=== PATIENT | male | born 1995 | race African-American/Black ===

== ENCOUNTER 2017-06-01 21:47 | Emergency (ER) | payer BC, OTHER, SELFPAY ==
--- NOTE | 2017-06-01 23:29 | ER ---
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 Transition of care: patient was not received from another setting of care. Onset of symptoms was June 01, 2017. Care prior to arrival: None. 22:18 Method Of Arrival: Ambulatory tl1 22:18 Acuity: LIZZIE 4 tl1 Historical: - Allergies: 22:22 No Known Allergies; tl1 - Home Meds: 22:22 None [Active]; tl1 - PMHx: 22:22 Kidney stones; tl1 - PSHx: 22:22 Cholecystectomy; Lithotripsy; tl1 - Immunization history:: Adult Immunizations up to date, Last tetanus immunization: unknown. - Social history:: Smoking status: Patient/guardian denies using tobacco, never smoked. Screenin:57 Abuse screen: Denies threats or abuse. Denies injuries from another. Nutritional kr2 screening: No deficits noted. Tuberculosis screening: No symptoms or risk factors identified. Fall Risk None identified. Assessment: 22:54 General: Appears in no apparent distress. comfortable, well groomed, well developed, kr2 well nourished, Behavior is calm, cooperative, appropriate for age. Pain: Complains of pain in lateral aspect of left hand Pain does not radiate. Pain currently is 5 out of 10 on a pain scale. Quality of pain is described as burning, Pain began suddenly, Is continuous, Alleviated by nothing. Aggravated by touch, movement. Neuro: Level of Consciousness is awake, alert, obeys commands, Oriented to person, place, time, situation, Appropriate for age Financial Aid Advisor are equal bilaterally Moves all extremities. Intact. Cardiovascular: Capillary refill < 3 seconds in bilateral fingers Patient's skin is warm and dry. Respiratory: Airway is patent Respiratory effort is even, unlabored, Respiratory pattern is regular, symmetrical. GI: Abdomen is flat, non-distended. : No signs and/or symptoms were reported regarding the genitourinary system. EENT: Nares are clear Oral mucosa is moist. Derm: Skin is healthy with good turgor, Skin is pink, warm \T\ dry. Musculoskeletal: Circulation, motion, and sensation intact. Range of motion: intact in all extremities. Injury Description: Laceration sustained to lateral aspect of left hand is clean, 0.5 to 2.5 cm long, was sustained 30-60 minutes ago. a small amount of bleeding noted at this time. Vital Signs: 22:20 BP 148 / 94; Pulse 96; Resp 16; Temp 98.8; Pulse Ox 97% ; Weight 90.72 kg; Height 5 ft. tl1 11 in. (180.34 cm); Pain 5/10; 22:58 BP 137 / 88; Pulse 87; Resp 15; Pulse Ox 98% on R/A; kr2 23:44 BP 132 / 95; Pulse 86; Resp 15; Pulse Ox 99% on R/A; kr2 22:20 Body Mass Index 27.89 (90.72 kg, 180.34 cm) tl1 ED Course: 21:50 Patient arrived in ED. al2 22:20 Triage completed. tl1 22:22 Arm band placed on right wrist. tl1 22:54 Shikha Pierre, MARCO is Primary Nurse. kr2 22:58 Patient has correct armband on for positive identification. Bed in low position. Call kr2 light in reach. Side rails up X 1. Pulse ox on. NIBP on. Door closed. Head of bed elevated. 23:12 Jonathan Walton PA is PHCP. jr8 23:12 Osiel Castaneda MD is Attending Physician. jr8 23:44 No provider procedures requiring assistance completed. Patient did not have IV access kr2 during this emergency room visit. 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 Exp: kr2 07/23/2019. Lot #: [id number]. } Route: IM; Site: left deltoid; 23:41 Follow up: Response: No adverse reaction kr2 Outcome: 23:29 Discharge ordered by . jr8 23:44 Discharged to home ambulatory. kr2 23:44 Condition: good 23:44 Discharge instructions given to patient, Instructed on discharge instructions, follow up and referral plans. Demonstrated understanding of instructions, follow-up care. 23:44 Patient left the ED. kr2 Signatures: Jonathan Walton PA PA jr8 Hanna Chacon, RN RN tl1 Shikha Pierre RN RN kr2 Sandie Fajardo2
--- NOTE | 2017-06-01 23:29 | EDPHYS ---
Physician Documentation [facility] Name: Zion Coronado Age: 21 yrs Sex: Male : 1995 Arrival Date: 06/01/2017 Time: 21:50 Bed 24 Private MD: ED Physician Osiel Castaneda HPI: 06/01 23:26 This 21 yrs old Black Male presents to ER via Ambulatory with complaints of Hand jr8 Injury, Hand Pain. 23:26 The patient or guardian reports a laceration. The complaints affect the left hand. jr8 Onset: The symptoms/episode began/occurred acutely, today. Modifying factors: The symptoms are alleviated by nothing, the symptoms are aggravated by nothing. Associated signs and symptoms: The patient has no apparent associated signs or symptoms. Severity of symptoms: At their worst the symptoms were mild, in the emergency department the symptoms are unchanged. The patient has not experienced similar symptoms in the past. The patient has not recently seen a physician. 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 Historical: - Allergies: 22:22 No Known Allergies; tl1 - Home Meds: 22:22 None [Active]; tl1 - PMHx: 22:22 Kidney stones; tl1 - PSHx: 22:22 Cholecystectomy; Lithotripsy; tl1 - Immunization history:: Adult Immunizations up to date, Last tetanus immunization: unknown. - Social history:: Smoking status: Patient/guardian denies using tobacco, never smoked. ROS: 23:26 Eyes: Negative for injury, pain, redness, and discharge, ENT: Negative for injury, jr8 pain, and discharge, Neck: Negative for injury, pain, and swelling, Cardiovascular: Negative for chest pain, palpitations, and edema, Respiratory: Negative for shortness of breath, cough, wheezing, and pleuritic chest pain, Abdomen/GI: Negative for abdominal pain, nausea, vomiting, diarrhea, and constipation, Back: Negative for injury and pain, MS/Extremity: Negative for injury and deformity, Neuro: Negative for headache, weakness, numbness, tingling, and seizure. 23:26 Skin: Positive for laceration(s), of the left hand. Exam: 23:26 Cardiovascular: Regular rate and rhythm with a normal S1 and S2. No gallops, murmurs, jr8 or rubs. Normal PMI, no JVD. No pulse deficits. Respiratory: Lungs have equal breath sounds bilaterally, clear to auscultation and percussion. No rales, rhonchi or wheezes noted. No increased work of breathing, no retractions or nasal flaring. MS/ Extremity: Pulses equal, no cyanosis. Neurovascular intact. Full, normal range of motion. Neuro: Awake and alert, GCS 15, oriented to person, place, time, and situation. Cranial nerves II-XII grossly intact. Motor strength 5/5 in all extremities. Sensory grossly intact. Cerebellar exam normal. Normal gait. 23:26 Skin: injury, laceration(s), the wound is approximately 2.5 cm(s), with a depth of .5 cm(s), of the dorsum of left hand, that can be described as no foreign body, irregular, with mild bleeding. Vital Signs: 22:20 BP 148 / 94; Pulse 96; Resp 16; Temp 98.8; Pulse Ox 97% ; Weight 90.72 kg; Height 5 ft. tl1 11 in. (180.34 cm); Pain 5/10; 22:58 BP 137 / 88; Pulse 87; Resp 15; Pulse Ox 98% on R/A; kr2 23:44 BP 132 / 95; Pulse 86; Resp 15; Pulse Ox 99% on R/A; kr2 22:20 Body Mass Index 27.89 (90.72 kg, 180.34 cm) tl1 Laceration: 23:26 Wound Repair of 2.5cm ( 1.0in ) subcutaneous laceration to left hand. Irregularly jr8 shaped.. Minimal bleeding noted.. Distal neuro/vascular/tendon intact. Anesthesia: Local anesthetic administered with 3 mls of 1% lidocaine. Wound prep: Moderate cleansing with betadine, Wound explored extensively. Skin closed with 4 4-0 Prolene using interrupted sutures and sterile technique. Patient tolerated well. MDM: 23:12 Patient medically screened. jr8 23:26 Data reviewed: vital signs, nurses notes, and as a result, I will discharge patient. jr8 Data interpreted: Pulse oximetry: on room air is 98 %. Interpretation: normal. Counseling: I had a detailed discussion with the patient and/or guardian regarding: the historical points, exam findings, and any diagnostic results supporting the discharge/admit diagnosis, the need for outpatient follow up, a family practitioner, to return to the emergency department if symptoms worsen or persist or if there are any questions or concerns that arise at home. 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 Exp: kr2 07/23/2019. Lot #: [id number]. } Route: IM; Site: left deltoid; 23:41 Follow up: Response: No adverse reaction kr2 Disposition: 06/02 07:06 Co-signature as Attending Physician, Osiel Castaneda MD I agree with the assessment and aissatou plan of care. Disposition: 06/01/17 23:29 Discharged to Home. Impression: Laceration without foreign body of left hand. - Condition is Stable. - Discharge Instructions: Laceration Care, Adult. - Medication Reconciliation Form, Thank You Letter, Antibiotic Education, Prescription Opioid Use, Work release form form. - Follow up: Private Physician; When: 7 - 10 days; Reason: Wound Recheck, Recheck today's complaints, Continuance of care, Staple/Suture removal, Re-evaluation by your physician. - Problem is new. - Symptoms have improved. Signatures: Osiel Castaneda MD MD cha Roszak, Josh, PA PA jr8 Hanna Chacon, RN RN tl1 Shikha Pierre RN RN kr2
[2017-06-01] MEDS ORDERED: LIDOCAINE 1% MPF 5 ML VIAL ONE (23:35)
[2017-06-01 23:50] VITALS: TEMP 98.8
[2017-06-01 23:52] VITALS: BP 132/95; O2SAT 99
[2017-06-01] MEDS ORDERED: TETANUS & DIPHTHERIA TOX,ADULT 0.5 ML VIAL ONE (23:53)
== END 2017-06-01 23:44 | disposition home or self-care (01) ==
LOC: ER 21:47
PROC: 0JQK0ZZ Repair Left Hand Subcutaneous Tissue and Fascia, Open Approach (ICD-10-PCS; principal; 2017-06-01)
DX: S61.412A Laceration without foreign body of left hand, initial encounter (principal); W26.0XXA Contact with knife, initial encounter; Y93.89 Activity, other specified; Y92.89 Other specified places as the place of occurrence of the external cause; Y99.0 Civilian activity done for income or pay; Z23 Encounter for immunization
CPT/HCPCS: 90714; 99283

== ENCOUNTER 2017-08-04 12:15 | Emergency (ER) | payer OTHER, SELFPAY ==
[2017-08-04] MEDS ORDERED: NA CHLORIDE 0.9% 1,000 ML ONE (12:24)
[2017-08-04 12:52] LABS: Arterial Blood Carboxyhemoglob 0.9 % (0-1.5); Blood Gas Oxyhemoglobin 96.6 % (94-97); Blood O2 Saturation 98.3 % (92-98.5)
[2017-08-04 13:02] LABS: Absolute Lymphocytes (CBC) 2.4 K/uL (0.7-4.9); Absolute Monocytes 1.1 K/uL (0.1-1.3); Basophils % 0.3 % (0-1.3); Eosinophils % 0.1 % (0-4.4); Hematocrit 42.3 % (39.6-49.0); Lymphocytes % 17.8 % (15.3-44.8); MCV 88.4 fL (80-100); MPV 9.4 fL (7.6-11.3); Monocytes % 8.4 % (3.3-12.3); RBC Red Blood Cell Count 4.78 M/uL (4.33-5.43)
[2017-08-04 13:03] LABS: BUN Blood Urea Nitrogen 16 mg/dL (6-20); Bicarbonate 21 mEq/L (21-31); Glucose Level 84 mg/dL (65-120); Potassium 3.2 mEq/L (3.6-5.0); Sodium Level 135 mEq/L (135-145)
--- NOTE | 2017-08-04 13:33 | RAD REPORT ---
EXAM DESCRIPTION: RAD - Chest Single View - 08/04/2017 1:00 pm CLINICAL HISTORY: Facial numbness, shortness of breath COMPARISON: None. TECHNIQUE: AP portable chest image was obtained 1253 hours . FINDINGS: Lungs are clear. Heart and vasculature are normal. No measurable pleural effusion and no p neumothorax. No gross bony abnormality seen. No acute aortic findings suspected. IMPRESSION: No acute cardiopulmonary process.
[2017-08-04] MEDS ORDERED: POTASSIUM CL SA 10 MEQ TAB PO ONE (13:43)
--- NOTE | 2017-08-04 13:46 | EKG ---
Test Date: 2017-08-04 Test Time: 12:36:53 Uc Architect: MARYLOU MEASUREMENT RESULTS: Intervals: Rate: 96 DC: 132 QRSD: 96 QT: 350 QTc: 442 [place]: P: 50 DC: 132 QRS: 42 T: 50 INTERPRETIVE STATEMENTS: Normal sinus rhythm Normal ECG No previous ECG available for comparison Electronically Signed On 08-04-17 13:45:25 CDT by Marquis Moreno
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
[2017-08-04 14:43] VITALS: TEMP 97.9
[2017-08-04 14:45] VITALS: O2SAT 100
[2017-08-04 14:46] VITALS: BP 114/78
== END 2017-08-04 14:35 | disposition home or self-care (01) ==
LOC: ER 12:15
DX: E86.0 Dehydration (principal); T67.5XXA Heat exhaustion, unspecified, initial encounter; Y99.0 Civilian activity done for income or pay; Y93.89 Activity, other specified; Y92.89 Other specified places as the place of occurrence of the external cause
CPT/HCPCS: 36415; 71045; 80048; 82805; 85025; 93005; 96360; 99284; J7030

== ENCOUNTER 2019-02-13 23:47 | Emergency (ER) | payer BC, OTHER ==
[2019-02-14 00:49] LABS: Absolute Lymphocytes (CBC) 2.6 K/uL (0.7-4.9); Basophils % 0.3 % (0-1.3); Hematocrit 44.3 % (39.6-49.0); Lymphocytes % 31.5 % (15.3-44.8); MPV 8.8 fL (7.6-11.3); RBC Red Blood Cell Count 4.96 M/uL (4.33-5.43)
[2019-02-14] MEDS ORDERED: ONDANSETRON 4 MG/2 ML VIAL ONE (00:53)
[2019-02-14] MEDS ORDERED: NA CHLORIDE 0.9% 1,000 ML ONE (00:53)
[2019-02-14 01:04] LABS: ALT/SGPT 54 U/L (12-78); AST/SGOT 27 U/L (15-37); Albumin 3.8 g/dL (3.4-5.0); Alkaline Phosphatase 68 U/L (45-117); BUN Blood Urea Nitrogen 12 mg/dL (7-18); Bicarbonate 29 mmol/L (21-32); Bilirubin Direct 0.2 mg/dL (0-0.2); Bilirubin Total 0.9 mg/dL (0.2-1.0); Glucose Level 125 mg/dL (74-106); Lipase 108 U/L (73-393); Potassium 3.8 mmol/L (3.5-5.1); Protein, Total 7.5 g/dL (6.4-8.2); Sodium Level 142 mmol/L (136-145)
[2019-02-14 01:34] LABS: Urine Blood NEGATIVE (NEG); Urine Glucose NEGATIVE (NEG); Urine Protein 1+ (NEG)
--- NOTE | 2019-02-14 04:30 | ER ---
Nurse's Notes [facility] Name: Zion Coronado Age: 23 yrs Sex: Male : 1995 Arrival Date: 02/13/2019 Time: 23:50 Bed 13 Private MD: Diagnosis: Abdominal tenderness Presentation: 02/14 00:04 Presenting complaint: Patient states: he started having abdominal pain with vomiting bb for several hours and he has had diarrhea "for a while" abdominal pain is constant and currently is 6/10. Transition of care: patient was not received from another setting of care. Onset of symptoms was February 14, 2019. Risk Assessment: Do you want to hurt yourself or someone else? Patient reports no desire to harm self or others. Initial Sepsis Screen: Does the patient meet any 2 criteria? No. Patient's initial sepsis screen is negative. Does the patient have a suspected source of infection? No. Patient's initial sepsis screen is negative. Care prior to arrival: None. 00:04 Method Of Arrival: Ambulatory bb 00:04 Acuity: LIZZIE 3 bb Historical: - Allergies: 00:05 No Known Allergies; bb - Home Meds: 00:05 None [Active]; bb - PMHx: 00:05 Kidney stones; bb - PSHx: 00:05 Cholecystectomy; bb - Immunization history:: Adult Immunizations up to date. - Social history:: Smoking status: Patient/guardian denies using tobacco. - Ebola Screening: : No symptoms or risks identified at this time. Screenin:15 Abuse screen: Denies threats or abuse. Nutritional screening: No deficits noted. jb4 Tuberculosis screening: No symptoms or risk factors identified. Fall Risk None identified. Assessment: 00:15 General: Appears in no apparent distress. uncomfortable, Behavior is calm, cooperative. jb4 Pain: Complains of pain in abdomen. Neuro: Level of Consciousness is awake, alert, obeys commands, Oriented to person, place, time, situation. Cardiovascular: Patient's skin is warm and dry. Respiratory: Airway is patent Respiratory effort is even, unlabored, Respiratory pattern is regular, symmetrical. GI: Abdomen is round non-distended, Bowel sounds present X 4 quads. : No signs and/or symptoms were reported regarding the genitourinary system. EENT: No signs and/or symptoms were reported regarding the EENT system. Derm: Skin is intact, Skin is pink, warm \\T\\ dry. Musculoskeletal: Circulation, motion, and sensation intact. Range of motion: intact in all extremities. 01:30 Reassessment: Patient appears in no apparent distress at this time. Patient and/or jb4 family updated on plan of care and expected duration. Pain level reassessed. Patient is alert, oriented x 3, equal unlabored respirations, skin warm/dry/pink. 02:20 Reassessment: Patient appears in no apparent distress at this time. Patient and/or jb4 family updated on plan of care and expected duration. Pain level reassessed. Patient is alert, oriented x 3, equal unlabored respirations, skin warm/dry/pink. PT to Ct Patient states feeling better. 03:30 Reassessment: Patient appears in no apparent distress at this time. Patient and/or jb4 family updated on plan of care and expected duration. Pain level reassessed. Patient is alert, oriented x 3, equal unlabored respirations, skin warm/dry/pink. 04:25 Reassessment: Patient appears in no apparent distress at this time. Patient and/or jb4 family updated on plan of care and expected duration. Pain level reassessed. Patient is alert, oriented x 3, equal unlabored respirations, skin warm/dry/pink. 05:00 Reassessment: Patient appears in no apparent distress at this time. Patient and/or jb4 family updated on plan of care and expected duration. Pain level reassessed. Patient is alert, oriented x 3, equal unlabored respirations, skin warm/dry/pink. Vital Signs: 00:05 BP 139 / 82; Pulse 78; Resp 16 S; Temp 98.1(O); Pulse Ox 100% on R/A; Weight 103.42 kg bb (R); Height 5 ft. 10 in. (177.80 cm) (R); Pain 6/10; 02:05 BP 127 / 85; Pulse 82; Resp 16; Pulse Ox 100% on R/A; jb4 03:30 BP 121 / 75; Pulse 72; Resp 16; Pulse Ox 96% on R/A; jb4 04:15 BP 120 / 71; Pulse 69; Resp 16; Pulse Ox 98% on R/A; jb4 04:45 BP 120 / 71; Pulse 69; Resp 16; Pulse Ox 98% on R/A; jb4 00:05 Body Mass Index 32.71 (103.42 kg, 177.80 cm) ED Course: 12 23:50 Patient arrived in ED. cl3 12 00:05 Triage completed. bb 00:05 Arm band placed on Patient placed in waiting room, Patient notified of wait time. bb 00:09 Fernando Box MD is Attending Physician. tw4 00:15 Patient has correct armband on for positive identification. Bed in low position. Call jb4 light in reach. Side rails up X 1. Pulse ox on. NIBP on. 00:29 Inserted saline lock: 20 gauge in left antecubital area, using aseptic technique. Blood mt collected. 00:40 Luis Velazquez, RN is Primary Nurse. jb4 02:44 CT Abd/Pelvis - IV Contrast Only In Process Unspecified. EDMS 05:01 No provider procedures requiring assistance completed. IV discontinued, intact, jb4 bleeding controlled, No redness/swelling at site. Pressure dressing applied. Administered Medications: 01:20 Drug: NS 0.9% 1000 ml Route: IV; Rate: 1 bolus; Site: left antecubital; jb4 02:00 Follow up: Response: No adverse reaction; IV Status: Completed infusion; IV Intake: jb4 1000ml 01:20 Drug: Zofran 4 mg Route: IVP; Site: left antecubital; jb4 01:50 Follow up: Response: No adverse reaction; Nausea is decreased jb4 04:58 Drug: TORadol 30 mg Route: IVP; Site: left antecubital; jb4 04:59 Follow up: Response: Medication administered at discharge. jb4 Intake: 02:00 IV: 1000ml; Total: 1000ml. jb4 Outcome: 04:29 Discharge ordered by . tw4 05:01 Discharged to home ambulatory. jb4 05:01 Condition: stable 05:01 Discharge instructions given to patient, Instructed on discharge instructions, follow up and referral plans. medication usage, Demonstrated understanding of instructions, follow-up care, medications, Prescriptions given X 1. 05:02 Patient left the ED. mw2 Signatures: Dispatcher [facility] Olinda Soares RN RN bb Bryson, James, RN RN jb4 She Mike mt, Terrence, MD MD tw4 Autumn Norma mw2 Alana Gomez cl3
--- NOTE | 2019-02-14 04:30 | EDPHYS ---
Physician Documentation [facility] Name: Zion Coronado Age: 23 yrs Sex: Male : 1995 Arrival Date: 02/13/2019 Time: 23:50 Bed 13 Private MD: ED Physician Fernando Box HPI: 02/14 00:41 This 23 yrs old Black Male presents to ER via Ambulatory with complaints of Abdominal tw4 Pain, Nausea/Vomiting/Diarrhea. 00:41 The patient presents to the emergency department with nausea. Onset: The tw4 symptoms/episode began/occurred today. Possible causes: unknown. The symptoms are aggravated by nothing. The symptoms are alleviated by nothing. The patient has not experienced similar symptoms in the past. Historical: - Allergies: 00:05 No Known Allergies; bb - Home Meds: 00:05 None [Active]; bb - PMHx: 00:05 Kidney stones; bb - PSHx: 00:05 Cholecystectomy; bb - Immunization history:: Adult Immunizations up to date. - Social history:: Smoking status: Patient/guardian denies using tobacco. - Ebola Screening: : No symptoms or risks identified at this time. ROS: 02:45 Constitutional: Negative for fever, chills, and weight loss, Eyes: Negative for injury, tw4 pain, redness, and discharge, Cardiovascular: Negative for chest pain, palpitations, and edema, Respiratory: Negative for shortness of breath, cough, wheezing, and pleuritic chest pain, Back: Negative for injury and pain, MS/Extremity: Negative for injury and deformity, Skin: Negative for injury, rash, and discoloration, Neuro: Negative for headache, weakness, numbness, tingling, and seizure. 02:45 Abdomen/GI: Positive for abdominal pain, nausea and vomiting, nausea, vomiting, and diarrhea, nausea, vomiting, Negative for diarrhea, constipation, abdominal cramps, abdominal distension, anorexia, dysphagia, hematemesis, black/tarry stool, rectal pain, rectal bleeding. Exam: 02:45 Constitutional: This is a well developed, well nourished patient who is awake, alert, tw4 and in no acute distress. Head/Face: Normocephalic, atraumatic. Chest/axilla: Normal chest wall appearance and motion. Nontender with no deformity. No lesions are appreciated. Cardiovascular: Regular rate and rhythm with a normal S1 and S2. No gallops, murmurs, or rubs. Normal PMI, no JVD. No pulse deficits. Respiratory: Lungs have equal breath sounds bilaterally, clear to auscultation and percussion. No rales, rhonchi or wheezes noted. No increased work of breathing, no retractions or nasal flaring. 02:45 Back: No spinal tenderness. No costovertebral tenderness. Full range of motion. MS/ Extremity: Pulses equal, no cyanosis. Neurovascular intact. Full, normal range of motion. Neuro: Awake and alert, GCS 15, oriented to person, place, time, and situation. Cranial nerves II-XII grossly intact. Motor strength 5/5 in all extremities. Sensory grossly intact. Cerebellar exam normal. Normal gait. Psych: Awake, alert, with orientation to person, place and time. Behavior, mood, and affect are within normal limits. 02:45 Abdomen/GI: Inspection: abdomen appears normal, Bowel sounds: diminished, Palpation: moderate abdominal tenderness, in the right lower quadrant. Vital Signs: 00:05 BP 139 / 82; Pulse 78; Resp 16 S; Temp 98.1(O); Pulse Ox 100% on R/A; Weight 103.42 kg bb (R); Height 5 ft. 10 in. (177.80 cm) (R); Pain 6/10; 02:05 BP 127 / 85; Pulse 82; Resp 16; Pulse Ox 100% on R/A; jb4 03:30 BP 121 / 75; Pulse 72; Resp 16; Pulse Ox 96% on R/A; jb4 04:15 BP 120 / 71; Pulse 69; Resp 16; Pulse Ox 98% on R/A; jb4 04:45 BP 120 / 71; Pulse 69; Resp 16; Pulse Ox 98% on R/A; jb4 00:05 Body Mass Index 32.71 (103.42 kg, 177.80 cm) bb MDM: 00:09 Patient medically screened. tw4 02:45 Differential diagnosis: Nonspecific abd pain, gastritis, cholecystitis. Data reviewed: tw4 vital signs, nurses notes. Data interpreted: Pulse oximetry: Interpretation: normal. Test interpretation: by ED physician or midlevel provider: ECG. Counseling: I had a detailed discussion with the patient and/or guardian regarding: the historical points, exam findings, and any diagnostic results supporting the discharge/admit diagnosis, lab results, radiology results. 02:52 Data reviewed: lab test result(s), CBC, white blood cell count, hemoglobin, hematocrit, tw4 platelets, electrolytes, sodium, potassium, chloride, serum bicarbonate, BUN, creatinine, serum glucose, hepatic panel. 04:23 Special discussion: Based on the patient's Hx, exam, and Dx evaluation, there is no tw4 indication for emergent surgery or inpatient Tx. It is understood by the patient/guardian that if the Sx's persist or worsen they need to return immediately for re-evaluation. I discussed with the patient/guardian in detail that at this point there is no indication for admission to the hospital. It is understood, however, that if the symptoms persist or worsen the patient needs to return immediately for re-evaluation. 02/14 00:10 Order name: Basic Metabolic Panel; Complete Time: 01:46 02/14 01:47 Interpretation: Normal except: CL 109; GLUC 125. 02/14 00:10 Order name: CBC with Diff; Complete Time: :46 02/14 00:10 Order name: Creatinine for Radiology; Complete Time: :46 02/14 00:10 Order name: Hepatic Function; Complete Time: :46 02/14 00:10 Order name: Lipase; Complete Time: :46 02/14 01:16 Order name: Urine Dipstick--Ancillary (enter results); Complete Time: 01:46 [facility] 02/14 00:10 Order name: IV Saline Lock; Complete Time: 00:29 02/14 00:10 Order name: Labs collected and sent; Complete Time: 00:29 02/14 00:32 Order name: Urine Dipstick-Ancillary (obtain specimen); Complete Time: 01:24 02/14 01:42 Order name: CT Abd/Pelvis - IV Contrast Only Administered Medications: 01:20 Drug: NS 0.9% 1000 ml Route: IV; Rate: 1 bolus; Site: left antecubital; jb4 02:00 Follow up: Response: No adverse reaction; IV Status: Completed infusion; IV Intake: jb4 1000ml 01:20 Drug: Zofran 4 mg Route: IVP; Site: left antecubital; jb4 01:50 Follow up: Response: No adverse reaction; Nausea is decreased jb4 04:58 Drug: TORadol 30 mg Route: IVP; Site: left antecubital; jb4 04:59 Follow up: Response: Medication administered at discharge. jb4 Disposition: 02/14/19 04:29 Discharged to Home. Impression: Abdominal tenderness. - Condition is Stable. - Discharge Instructions: Abdominal Pain, Adult. - Prescriptions for Bentyl 20 mg Oral Tablet - take 1 tablet by ORAL route every 6 hours As needed; 20 tablet. - Work release form, Medication Reconciliation Form, Thank You Letter, Antibiotic Education, Prescription Opioid Use form. - Follow up: Private Physician; When: Upon discharge from the Emergency Department; Reason: Recheck today's complaints, Continuance of care. - Problem is new. - Symptoms have improved. Signatures: Dispatcher [employer] EDMS Olinda Soares RN RN Luis Diaz RN RN jb4 Fernando Box MD MD tw4 Norma Leyva mw2 Corrections: (The following items were deleted from the chart) 02:53 02:45 Data reviewed: lab test result(s), cardiac enzymes, troponin i, CBC, white blood tw4 cell count, hemoglobin, hematocrit, platelets, electrolytes, sodium, potassium, chloride, serum bicarbonate, BUN, creatinine, serum glucose, hepatic panel, [facility] 05:02 04:29 02/14/2019 04:29 Discharged to Home. Impression: Abdominal tenderness. Condition mw2 is Stable. Forms are Medication Reconciliation Form, Thank You Letter, Antibiotic Education, Prescription Opioid Use. Follow up: Private Physician; When: Upon discharge from the Emergency Department; Reason: Recheck today's complaints, Continuance of care. Problem is new. Symptoms have improved. tw4
[2019-02-14] MEDS ORDERED: KETOROLAC 30 MG/ML INJ ONE (04:53)
[2019-02-14 06:44] VITALS: TEMP 98.1
[2019-02-14 06:48] VITALS: BP 120/71; O2SAT 98
--- NOTE | 2019-02-14 10:59 | RAD REPORT ---
EXAM DESCRIPTION: CT Abdomen and Pelvis With Intravenous Contrast CLINICAL HISTORY: The patient is 23 years old and is Male; ABD PAIN TECHNIQUE: Axial computed tomography images of the abdomen and pelvis with intravenous contrast. S agittal and coronal reformatted images were created and reviewed. This CT exam was performed using one or more of the following dose reduction techniques: automated exposure control, adjustment of t he mA and/or kV according to patient size, and/or use of iterative reconstruction technique. COMPARISON: No relevant prior studies available. FINDINGS: LUNG BASES: Unremarkable. No mass. No consolidation. ABDOMEN: LIVER: The liver is mildly fatty. GALLBLADDER AND BILE DUCTS: Surgical clips are present in the right upper quadrant, consistent w ith previous cholecystectomy. PANCREAS: No ductal dilation. No mass. SPLEEN: Unremarkable. ADRENALS: Unremarkable. No mass. KIDNEYS AND URETERS: Unremarkable. The kidneys enhance symmetrically. No obstructing renal or ur eteral calculus is seen. No hydronephrosis or hydroureter. No perinephric fluid or stranding. STOMACH AND BOWEL: The stomach is distended with food contents. The small bowel is normal in afia iber. A moderate amount stool is present throughout colon. There is no mucosal thickening or evidence of bowel obstruction. PELVIS: APPENDIX: The appendix is normal in caliber without surrounding inflammation. BLADDER: Unremarkable. No mass. REPRODUCTIVE: Unremarkable as visualized. ABDOMEN and PELVIS: INTRAPERITONEAL SPACE: Unremarkable. No free air. No significant fluid collection. BONES/JOINTS: No acute fracture. SOFT TISSUES: The soft tissues are normal. VASCULATURE: Unremarkable. No abdominal aortic aneurysm. LYMPH NODES: Unremarkable. No enlarged lymph nodes. IMPRESSION: No acute findings on this contrasted CT of the abdomen and pelvis to explain the patient 's symptoms. Electronically signed by: Michelle Gaxiola MD 02/14/2019 3:25 AM DRY CLEANING MANAGER Due to temporary technical issues with the PACS/Fluency reporting system, reports are being signed by the in house radiologist as a courtesy to ensure prompt reporting. The interpreting radiologist is f ully responsible for the content of the report.
== END 2019-02-14 05:02 | disposition home or self-care (01) ==
LOC: ER 23:47
DX: R10.819 Abdominal tenderness, unspecified site (principal)
CPT/HCPCS: 96361; 85025; 80048; 36415; 80076; 81003; 83690; 74177; 96375; 96374; 99284; Q9967; J7030; J2405

== ENCOUNTER 2020-08-08 23:17 | Emergency (ER) | payer BC, SELFPAY ==
--- OUTSIDE RECORDS SUMMARY | 2020-08-08 23:19 | XMS REPORT | Continuity of Care Document ---
:1995 Author Organization [facility] t Address [address] [place] [address] Care Team Providers Name Role Phone Giles URIBE S Attending Clinician Doctor Unassigned, Name Attending Clinician Unavailable Lab, Fam Pob I Attending Clinician Unavailable Problems This patient has no known problems. Allergies, Adverse Reactions, Alerts This patient has no known allergies or adverse reactions. Medications This patient has no known medications. Procedures This patient has no known procedures. Encounters Start End Encounter Admission Attending Care Care Encounter Source Date/Time Date/Time Type Type Clinicians Facility Department ID 2020-05-29 2020-05-29 Emergency [place] [facility] [id number] 05:14:00 06:47:00 Dulce Calvo [id number] [place] [id number] [place] [id number] 2020-05-29 2020-05-29 Orders Doctor MAICOL [id number] 00:00:00 00:00:00 Only Unassigned, LISA [id number] [place] [id number] 2019-10-28 2019-10-28 Laboratory Lab, [facility] [id number] 14:41:41 15:01:41 Only Fam P[facility] [id number] [place] [id number] [facility] [id number] [address] [address] Results This patient has no known results.
--- NOTE | 2020-08-09 00:29 | ER ---
Nurse's Notes [facility] [place], [place] Name: Zion Coronado Age: 24 yrs Sex: Male : 1995 Arrival Date: 08/08/2020 Time: 23:24 Bed Waiting Private MD: Diagnosis: Presentation: 08/08 23:42 Chief complaint: Patient states: he suddenly started having right groin pain tonight at bb approx 2200 and now feels a lesly-sized bump in his groin denies vomiting or diarrhea. Coronavirus screen: At this time, the client does not indicate any symptoms associated with coronavirus-19. Ebola Screen: No symptoms or risks identified at this time. Initial Sepsis Screen: Does the patient meet any 2 criteria? No. Patient's initial sepsis screen is negative. Does the patient have a suspected source of infection? No. Patient's initial sepsis screen is negative. Risk Assessment: Do you want to hurt yourself or someone else? Patient reports no desire to harm self or others. Onset of symptoms was August 08, 2020. 23:42 Method Of Arrival: Ambulatory 23:42 Acuity: LIZZIE 3 Triage Assessment: 23:44 General: Appears in no apparent distress. Behavior is calm, cooperative. Pain: bb Complains of pain in right groin. Neuro: Level of Consciousness is awake, alert, obeys commands, Oriented to person, place, time, situation. Cardiovascular: Capillary refill < 3 seconds Patient's skin is warm and dry. Respiratory: Respiratory effort is even, unlabored, Respiratory pattern is regular. GI: Abdomen is non-distended. Derm: Skin is pink, warm \T\ dry. Musculoskeletal: Circulation, motion, and sensation intact. Historical: - Allergies: 23:44 No Known Allergies; bb - Home Meds: 23:44 None [Active]; bb - PMHx: 23:44 Kidney stones; bb - PSHx: 23:44 Cholecystectomy; Tonsillectomy; addenoids; bb - Immunization history:: Adult Immunizations up to date. - Social history:: Smoking status: Patient denies any tobacco usage or history of. Patient uses alcohol, occasionally. Vital Signs: 23:42 BP 130 / 87; Pulse 94; Resp 16 S; Temp 98.5(O); Pulse Ox 99% on R/A; Weight 93.89 kg bb (R); Height 5 ft. 11 in. (180.34 cm) (R); Pain 5/10; 23:42 Body Mass Index 28.87 (93.89 kg, 180.34 cm) bb ED Course: 23:24 Patient arrived in ED. es 23:44 Triage completed. bb 23:44 Arm band placed on Patient placed in waiting room, Patient notified of wait time. bb 08/09 00:12 Jhonny Rodriguez, RN is Primary Nurse. rr5 00:13 Patient's name was called from [employer]. No response. bb 00:29 Patient's name was called from [employer]. No response. Unable to locate patient. Will bb disposition as left without being seen by a provider. Administered Medications: No medications were administered Outcome: 00:29 Patient left the ED. bb Signatures: Shaylee Gonzalez Brenda, RN RN bb Jhonny Rodriguez, RN RN rr5
[2020-08-09 00:53] VITALS: BP 130/87; TEMP 98.5; O2SAT 99
== END 2020-08-09 00:29 | disposition left against medical advice (07) ==
LOC: ER 23:17
DX: Z53.21 Procedure and treatment not carried out due to patient leaving prior to being seen by health care provider (principal)
CPT/HCPCS: 99281

== ENCOUNTER 2021-01-27 13:37 | Emergency (ER) | payer BC, OTHER ==
--- OUTSIDE RECORDS SUMMARY | 2021-01-27 13:39 | XMS REPORT | Continuity of Care Document ---
:1995 Author Organization [facility] t Address [address] [place] [address] Care Team Providers Name Role Phone Collins, E Primary Care Physician Giles URIBE S Attending Clinician Doctor Unassigned, Name Attending Clinician Unavailable Sharon JOHNSON Attending Clinician Unavailable Lab, Fam Pob I Attending Clinician Unavailable Anene TAKE OFF WORKER Attending Clinician ANENE Attending Clinician Unavailable Edgar GARDNER Attending Clinician Unavailable Payers Payer Name Policy Type Policy Number Effective Date Expiration Date S [facility] [id number] 2019 00:00:00 Problems Condition Condition Condition Status Onset Resolution Last Treating Co mments Source Name Details Category Date Date Treatment Clinician Date No known No known Disease Unive rs active active ity of problems problems [facility] Allergies, Adverse Reactions, Alerts Allergy Allergy Status Severity Reaction(s) Onset Inactive Treating Comm ents Source Name Type Date Date Clinician NO KNOWN Drug Active Univers ALLERGIE Class ity of S [facility] Social History Social Habit Start Date Stop Date Quantity Comments Source Exposure to Not sure [facility] SARS-CoV-2 (event) Medica l Branch Sex Assigned At [birth year] [facility] 00:00:00 00:00:00 Medical Branch Smoking Status Start Date Stop Date Source Unknown if ever smoked [facility] Medications Ordered Filled Start Stop Current Ordering Indication Dosage Frequency Signature Comments Components Source Medication Medication Date Date Medication? Clinician (SIG) Name Name sulfamethox 2020-03- No 1{tbl} 1 tablet, [facility] azole-trime 12-31 Oral, ity of thoprim 08:45: 07:50 ONCE, 1 [place] (BACTRIM 00 :00 dose, On Medical DS) 800-160 Tue Branch mg per 12/31/20 tablet 1 at 0345, tablet SUSAN
Re ason for Anti-Infec tive: Documented Infection< br>Documen michelle Infection Site: Skin / Soft Tissue
Duration of Therapy: Other (see Comments) doxycycline 2020-03 No 100mg 100 mg, U nivers hyclate 12-31 Oral, ity of (Vibramycin 08:45: 07[place]50 [place] 1 [place] capsule 00 :00 dose, On Medica l 100 mg Tue Branch 12/31/20 at 0345, SUSAN
Re ason for Anti-Infec tive: Documented Infection< br>Documen michelle Infection Site: Skin / Soft Tissue
Duration of Therapy: Other (see Comments) benzonatate 200mg 200 mg, U nivers (TESSALON 3-17 03-17 Oral, ity of PERLES) 11:45: 10:44 ONCE, 1 [place] capsule 200 00 :00 dose, Wed Med ical mg 05/29/20 at Branch 0645, Routine benzonatate Yes [id number] 200mg Take 1 Univers 200 mg 3-17 capsule by ity of capsule 00:00: mouth 3 [place] 00 (three) Medical times Branch daily as needed for Cough. ibuprofen Yes [id number] 800mg Take 1 U nivers 800 mg 3-17 tablet by ity of tablet 00:00: mouth [place] 00 every 8 Medical (eight) Branch hours as needed for Pain (scale 4-6). benzonatate 2020- Yes [id number] 200mg Take 1 Univers 200 mg 3-17 capsule by ity of capsule 00:00: mouth 3 [place] 00 (three) Medical times Branch daily as needed for Cough. ibuprofen Yes [id number] 800mg Take 1 U nivers 800 mg 3-17 tablet by ity of tablet 00:00: mouth [place] 00 every 8 Medical (eight) Branch hours as needed for Pain (scale 4-6). hydrocodone 2010-03 Yes 1{capsu Take 1 Cap Univers -acetaminop 1-07 le} by mouth ity of hen 00:00: every 6 [place] (STAGESIC) 00 (six) Medical 5-500 mg hours as Branch per capsule needed for Pain. hydrocodone 2010-03 Yes 1{capsu Take 1 Cap Univers -acetaminop 1-07 le} by mouth ity of hen 00:00: every 6 [place] (STAGESIC) 00 (six) Medical 5-500 mg hours as Branch per capsule needed for Pain. hydrocodone 2010-03 Yes 1{capsu Take 1 Cap Univers -acetaminop 1-07 le} by mouth ity of hen 00:00: every 6 [place] (STAGESIC) 00 (six) Medical 5-500 mg hours as Branch per capsule needed for Pain. hydrocodone 2010-03 Yes 1{capsu Take 1 Cap Univers -acetaminop 1-07 le} by mouth ity of hen 00:00: every 6 [place] (STAGESIC) 00 (six) Medical 5-500 mg hours as Branch per capsule needed for Pain. hydrocodone 2010-03 Yes 1{capsu Take 1 Cap Univers -acetaminop 1-07 le} by mouth ity of hen 00:00: every 6 [place] (STAGESIC) 00 (six) Medical 5-500 mg hours as Branch per capsule needed for Pain. Vital Signs Vital Name Observation Time Observation Value Comments Source Systolic blood 2020-12-31 07:32:00 140 mm[facility]Hg[facility] Diastolic [facility] 2020-12-31 07:32:00 87 mm[Hg] [facility] Heart rate 2020-12-31 07:32:00 91 /min [facility] Respiratory rate 2020-12-31 07:32:00 19 /min [facility] Oxygen saturation in 2020-12-31 07:32:00 100 /min [facility] Arterial blood by [facility] Pulse oximetry Branch Body temperature 2020-12-31 06:54:00 37 [facility] Body height 2020-12-31 06:54:00 177.8 cm [facility] Body weight 2020-12-31 06:54:00 97.523 kg [facility] [place] [facility] BMI 2020-12-31 06:54:00 30.85 kg/m2 [facility] [place] [facility] Systolic blood 2020-05-29 10:13:00 132 mm[Hg] Univer sity of pressure [place] [facility] Diastolic blood 2020-05-29 10:13:00 81 mm[Hg] Unive rsity of pressure [place] [facility] Heart rate 2020-05-29 10:13:00 89 /min [facility] [place] [facility] Body temperature 2020-05-29 10:13:00 36.89 Janelle [facility] [place] [facility] Respiratory rate 2020-05-29 10:13:00 16 /min [facility] [place] [facility] Body height 2020-05-29 10:13:00 177.8 cm [facility] [place] [facility] Body weight 2020-05-29 10:13:00 93.441 kg [facility] [place] [facility] BMI 2020-05-29 10:13:00 29.56 kg/m2 [facility] [place] [facility] Oxygen saturation in 2020-05-29 10:13:00 100 /min [facility] of Arterial blood by [place] [facility] Pulse oximetry Branch Systolic blood 2020-05-29 10:13:00 132 mm[Hg] Univer sity of pressure [place] [facility] Diastolic blood 2020-05-29 10:13:00 81 mm[Hg] Unive rsity of pressure [place] [facility] Heart rate 2020-05-29 10:13:00 89 /min [facility] [place] [facility] Body temperature 2020-05-29 10:13:00 36.89 Janelle [facility] [place] [facility] Respiratory rate 2020-05-29 10:13:00 16 /min [facility] [place] [facility] Body height 2020-05-29 10:13:00 177.8 cm [facility] [place] [facility] Body weight 2020-05-29 10:13:00 93.441 kg [facility] [place] [facility] BMI 2020-05-29 10:13:00 29.56 kg/m2 [facility] [place] [facility] Oxygen saturation in 2020-05-29 10:13:00 100 /min University of Arterial blood by [facility] Pulse oximetry Branch Procedures Procedure Date / Time Performed Performing Clinician Sour e CONSENT/REFUSAL FOR 2020-12-31 06:43:35 Doctor Unassigned, No [facility] [place] DIAGNOSIS AND Name Medical Branch TREATMENT XR CHEST 1 VW 2020-05-29 10:55:05 Dulce Skaggs [facility] Medical [place] RAPID STREP SCREEN 2020-05-29 10:44:00 Dulce Skaggs [facility] FOR GROUP A Medical Branch COVID-19 (ID NOW 2020-05-29 10:44:00 Dulce Skaggs [facility] RAPID TESTING) Medical Branch NOTICE OF PRIVACY 2020-05-29 10:02:10 Doctor Unassigned, No [facility] [place] PRACTICES Name Medical Branch CONSENT/REFUSAL FOR 2020-05-29 10:01:55 Doctor Unassigned, No [facility] [place] DIAGNOSIS AND Name Medical Branch TREATMENT Encounters Start End Encounter Admission Attending Care Care Encounter Source Date/Time Date/Time Type Type Clinicians Facility Department ID 2021-01-14 Emergency [facility] [id number] Univers 07:46:37 ity of [facility] 2021-01-12 Emergency [facility] [id number] Univers 06:31:25 ity of [facility] 2020-12-31 2020-12-31 Emergency [facility] [id number] Univers 01:50:00 03:18:00 Dulce [place] [id number] ity of [place] [id number] [place] [address] [id number] [facility] 084 Branch 2020-05-29 2020-05-29 Emergency [facility] [id number] 05:14:00 06:47:00 Dulce [place] [id number] [place] [id number] [place] [address] [id number] 2020-05-29 2020-05-29 Emergency [facility] [id number] Univers 05:14:00 06:47:00 Redanjelica [place] [id number] ity of [place] [id number] [place] [facility] [id number] [facility] 084 [place] 2020-05-29 2020-05-29 Orders Doctor MAICOL [id number] 00:00:00 00:00:00 Only Unassigned, LISA [id number] [place] [facility] [id number] [id number] 2020-05-29 2020-05-29 Orders Doctor MAICOL [id number] Univers 00:00:00 00:00:00 Only Unassigned, LISA [id number] ity of [place] [facility] [id number] Maurice as [id number] [address] 2020-04-23 2020-04-23 Outpatient [facility] [id number] Univers 12:00:00 12:00:[id number] [facility] 2020-04-23 2020-04-23 [facility] [id number] Univers 12:00:00 12:00:00 ODELL [facility] 2019-10-28 2019-10-28 Laboratory Lab, [facility] [id number] 14:41:41 15:01:41 Only Fam Pob I Health [id number] [place] [id number] Professio [id number] [place] [address] Office [facility] 2019-10-28 2019-10-28 Laboratory Lab, [facility] Fam Pob I [facility] [id number] Univers 14:41:41 15:01:41 Only [place], [facility] [id number] ity of [place] [id number] Maurice as Professio [phone] Pa dical [address] Office Building [facility] 2019-10-28 2019-10-28 Outpatient R [place] [facility] [id number] Univers 14:40:00 14:40:[address] [facility] 2019-10-28 2019-10-28 Outpatient R [facility] [id number] Univers 14:40:00 14:40:[id number] [facility] 2019-08-24 2019-08-24 Outpatient R KENDRA, [facility] [id number] Univers 09:00:00 09:00:00 DEYVI [facility] Results Test Description Test Time Test Comments Results Result Comments Source COVID-19 (ID NOW RAPID TESTING) 2020-05-29 11:34:04 Test Item Value Reference Range Interpretation Comme nts SARS-CoV-2 Rapid ID NOW (test code Not Detected Not Detected = 71903-8) KARRIE (test code = KARRIE) ID NOW COVID-19 Assay is an isothermal nucleic acid amplification test intended for the qualitative detection of nucleic acid from SARS-CoV-2 viral RNA in nasopharyngeal ([employer]) specimens. It is used under Emergency Use Authorization (EUA) by FDA. The limit of detection (LOD) of the assay is 125 Genome Equivalents/mL. A positive result is indicative of the presence of SARS-CoV-2 RNA. ?Clinical correlation with patient history and other diagnostic information is necessary to determine patient infection status. A negative (Not Detected) result does not preclude SARS-CoV-2 infection. In patients with clinical symptoms and other tests that are consistent with SARS-CoV-2 infection, negative results should be treated as presumptive negative and a new specimen should be tested with alternative PCR molecular test. Invalid: Please collect a new specimen for repeat patient testing if clinically indicated. Lab Interpretation (test code = Normal 96332-5) [facility] [place] [facility] [id number] 11:18:15 Test Item Value Reference Range Interpretation Comments Streptococcus pyogenes (group A) Negative Negative antigen (test code = 35838-6) Lab Interpretation (test code = Normal 61542-6) [facility] [place] [facility]
--- NOTE | 2021-01-27 14:20 | RAD REPORT ---
EXAM DESCRIPTION: CT - CTHCSPWOC - 01/27/2021 1:52 pm CLINICAL HISTORY: head injury COMPARISON: No comparisons TECHNIQUE: Axial 5 mm thick images of the head were obtained. Axial 2 mm thick images of the cervic al spine were obtained with sagittal and coronal reconstruction images generated and reviewed. All CT scans are performed using dose optimization technique as appropriate and may include automated exposure control or mA/KV adjustment according to patient size. FINDINGS: No intracranial hemorrhage, mass, edema or acute intracranial finding. No suspicion for ac [place] infarction. No extra-axial fluid collections. Ventricles are normal. No globe or orbit abnormalit y seen. Mastoid air cells are clear. Middle ear is normally aerated with no gross ossicle abnormality seen on standard protocol CT head imaging. There is no skull fracture, measurable hematoma or other signific ant finding to the left side of the head. Opacification in the external auditory canal on the left ma y simply be cerumen rather than any blood or posttraumatic abnormality. This can be correlated with p hysical exam findings. Cervical body height and alignment are normal. No disk space narrowing. No fracture or acute bony abn ormality. Patient has a normal variant incomplete union of the C6 lamina into a single spinous proces s. Patient has normal variant incomplete or fragmented left-side C6 facet. Central canal detail is in herently limited. No paraspinal mass or hematoma. IMPRESSION: Negative CT head examination for acute or significant finding. No skull fractures. Mastoid air cells and middle ear are clear on the left. No gross ossicle abnormal ity seen. Left external auditory canal is opacified which may simply be cerumen rather than hemorrhag ic material or other posttraumatic process. This can be correlated with physical exam findings. Negative CT cervical spine examination for acute or significant finding. Patient has normal developm ental variants of the C6 left facet and spinous process.
[2021-01-27 14:21] LABS: Blood Gas Oxyhemoglobin 93.2 % (94-97)
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
== END 2021-01-27 15:49 | disposition home or self-care (01) ==
LOC: ER 13:37
DX: S09.90XA Unspecified injury of head, initial encounter (principal); X58.XXXA Exposure to other specified factors, initial encounter; Y93.89 Activity, other specified
CPT/HCPCS: 70450; 72125; 82805; 99283

== ENCOUNTER → 2023-03-09 | Emergency (ER) | payer OTHER, SELFPAY ==
[~2023-03-09] MED LIST: LIDOCAINE 1% MPF 5 ML VIAL ONE; SMZ./TMP. 800/160 MG TABLET ONE
--- OUTSIDE RECORDS SUMMARY | 2023-03-09 23:26 | XMS REPORT | Continuity of Care Document ---
Author Name Unknown Address [address] [place] [address] [facility]connect Address [address] [place] [address] Care Team Providers Care Sleeve Maker Name Role Phone Moise Collins Primary Care Physician [phone] Dulce kSaggs MD Attending Clinician [phone] Doctor Unassigned, Mckenzie Attending Clinician U ODELL Abernathy Attending Clinician Unavailable Lab, Adc Fam Pob I Attending Clinician Unavailab Maicol Pierre Attending Clinician [phone] MAICOL RODAS Attending Clinician Unavailable DEYVI GARDNER Attending Clinician Unavailable Payers Payer Name Policy Type Policy Number Effective Date Expirati on Date Source [facility] [id number] 2019 00:00:00 Problems Condition Name Condition Details Condition Category Status Onset Date Resolution Date Last Treatment Date Treating Clinician Comments Source No known active problems No known active problems Disease [facility] Allergies, Adverse Reactions, Alerts Allergy Name Allergy Type Status Severity Reaction(s) Onset Date Inactive Date Treating Clinician Comments Source NO KNOWN ALLERGIE S Drug Class Active [facility] Social History Social Habit Start Date Stop Date Quantity Comments Source Exposure to SARS-CoV-2 (event) Not sure [facility] Sex Assigned At 1995 00:00:00 1995 [facility] Smoking Status Start Date Stop Date Source Unknown if ever smoked [facility] Medications Ordered Medication Name Filled Medication Name Start Date Stop Date Current Medication? Ordering Clinician Indication Dosage Frequency Signature (SIG) Comments Components Source sulfamethox azole-trime thoprim (BACTRIM DS) 800-160 mg per tablet 1 tablet 2020-03 08:45: 00 12-31 07:50 :00 No 1{tbl} 1 tablet, Oral, ONCE, 1 dose, On Wed12/31/20 at 0345, SUSAN
Re ason for Anti-Infec tive: Documented Infection< br>Documen michelle Infection Site: Skin / Soft Tissue
Duration of Therapy: Other (see Comments) [facility] doxycycline hyclate (Vibramycin ) capsule 100 mg 2020-03 08:45: 00 12-31 07:50 :00 No 100mg 100 mg, Oral, ONCE, 1 dose, On Wed12/31/20 at 0345, SUSAN
Re ason for Anti-Infec tive: Documented Infection< br>Documen michelle Infection Site: Skin / Soft Tissue
Duration of Therapy: Other (see Comments) [facility] benzonatate (TESSALON PERLES) capsule 200 mg 05-29 11:45: 00 05-29 10:44 :00 No 200mg 200 mg, Oral, ONCE, 1 dose, Wed05/29/20 at 0645, Routine [facility] ibuprofen 800 mg tablet 05-29 00:00: 00 Yes [id number] 800mg Take 1 tablet by mouth every 8 (eight) hours as needed for Pain (scale 4-6). [facility] benzonatate 200 mg capsule 05-29 00:00: 00 Yes [id number] 200mg Take 1 capsule by mouth 3 (three) times daily as needed for Cough. [facility] ibuprofen 800 mg tablet 05-29 00:00: 00 Yes [id number] 800mg Take 1 tablet by mouth every 8 (eight) hours as needed for Pain (scale 4-6). [facility] benzonatate 200 mg capsule 05-29 00:00: 00 Yes [id number] 200mg Take 1 capsule by mouth 3 (three) times daily as needed for Cough. [facility] hydrocodone -acetaminop hen (STAGESIC) 5-500 mg per capsule 2010-03 00:00: 00 Yes 1{capsu le} Take 1 Cap by mouth every 6 (six) hours as needed for Pain. [facility] hydrocodone -acetaminop hen (STAGESIC) 5-500 mg per capsule 2010-03 00:00: 00 Yes 1{capsu le} Take 1 Cap by mouth every 6 (six) hours as needed for Pain. [facility] hydrocodone -acetaminop hen (STAGESIC) 5-500 mg per capsule 2010-03 00:00: 00 Yes 1{capsu le} Take 1 Cap by mouth every 6 (six) hours as needed for Pain. [facility] hydrocodone -acetaminop hen (STAGESIC) 5-500 mg per capsule 2010-03 00:00: 00 Yes 1{capsu le} Take 1 Cap by mouth every 6 (six) hours as needed for Pain. [facility] hydrocodone -acetaminop hen (STAGESIC) 5-500 mg per capsule 2010-03 00:00: 00 Yes 1{capsu le} Take 1 Cap by mouth every 6 (six) hours as needed for Pain. [facility] Vital Signs Vital Name Observation Time Observation Value Comments S sedrick Systolic blood pressure 2020-12-31 07:32:00 140 mm[Hg] [facility] Diastolic blood pressure 2020-12-31 07:32:00 87 mm[Hg] [facility] Heart rate 2020-12-31 07:32:00 91 /min [facility] Respiratory rate 2020-12-31 07:32:00 19 /min [facility] Oxygen saturation in Arterial blood by Pulse oximetry 2020-12-31 07:32:00 100 /min [facility] Body temperature 2020-12-31 06:54:00 37 [facility] Body height 2020-12-31 06:54:00 177.8 cm [facility] Body weight 2020-12-31 06:54:00 97.523 kg [facility] BMI 2020-12-31 06:54:00 30.85 kg/m2 [facility] Systolic blood pressure 2020-05-29 10:13:00 132 mm[Hg] [facility] Diastolic blood pressure 2020-05-29 10:13:00 81 mm[Hg] [facility] Heart rate 2020-05-29 10:13:00 89 /min [facility] Body temperature 2020-05-29 10:13:00 36.89 [facility] Respiratory rate 2020-05-29 10:13:00 16 /min [facility] Body height 2020-05-29 10:13:00 177.8 cm [facility] Body weight 2020-05-29 10:13:00 93.441 kg [facility] BMI 2020-05-29 10:13:00 29.56 kg/m2 [facility] Oxygen saturation in Arterial blood by Pulse oximetry 2020-05-29 10:13:00 100 /min [facility] Systolic blood pressure 2020-05-29 10:13:00 132 mm[Hg] [facility] Diastolic blood pressure 2020-05-29 10:13:00 81 mm[Hg] [facility] Heart rate 2020-05-29 10:13:00 89 /min [facility] Body temperature 2020-05-29 10:13:00 36.89 [facility] Respiratory rate 2020-05-29 10:13:00 16 /min [facility] Body height 2020-05-29 10:13:00 177.8 cm [facility] Body weight 2020-05-29 10:13:00 93.441 kg [facility] BMI 2020-05-29 10:13:00 29.56 kg/m2 [facility] Oxygen saturation in Arterial blood by Pulse oximetry 2020-05-29 10:13:00 100 /min [facility] Procedures Procedure Date / Time Performed Performing Clinicia n Source CONSENT/REFUSAL FOR DIAGNOSIS AND TREATMENT 2020-12-31 06:43:35 Doctor Unassigned, [facility] XR CHEST 1 VW 2020-05-29 10:55:05 Dulce Skaggs [facility] RAPID STREP SCREEN FOR GROUP A 2020-05-29 10:44:00 Dulce [facility] COVID-19 (ID NOW RAPID TESTING) 2020-05-29 10:44:00 Dulce [facility] NOTICE OF PRIVACY PRACTICES 2020-05-29 10:02:10 Doctor Unassigned, [facility] CONSENT/REFUSAL FOR DIAGNOSIS AND TREATMENT 2020-05-29 10:01:55 Doctor Unassigned, [facility] Encounters Start Date/Time End Date/Time Encounter Type Admission Type Attending [facility] Care Facility Care Department Encounter ID Source 2021-01-14 07:46:37 Emergency [facility] [id number] [facility] 2021-01-12 06:31:25 Emergency [facility] [id number] [facility] 2020-12-31 01:50:00 2020-12-31 03:18:00 [facility] [id number] [facility] 2020-05-29 05:14:00 2020-05-29 06:47:00 Emergency [facility] [id number] 2020-05-29 05:14:00 2020-05-29 06:47:00 Emergency [facility] [id number] [facility] 2020-05-29 00:00:00 2020-05-29 00:00:00 Orders Only Doctor Unassigned, Mckenzie [facility] [id number] 2020-05-29 00:00:00 2020-05-29 00:00:00 Orders Only Doctor Unassigned, Mckenzie [facility] [id number] [facility] 2020-04-23 12:00:00 2020-04-23 12:00:00 Outpatient ODELL GUZMÁN [facility] [id number] [facility] 2019-10-28 14:41:41 2019-10-28 15:01:41 Laboratory Only Lab, Critical access hospital [facility] [address] [facility] [id number] 2019-10-28 14:41:41 2019-10-28 15:01:41 Laboratory Only Lab, [facility] [id number] [facility] 2019-10-28 14:40:00 2019-10-28 14:40:00 Outpatient MAICOL MARTÍNEZ [facility] [id number] [facility] 2019-08-24 09:00:00 2019-08-24 09:00:00 Outpatient DEYVI ESPINOZA [facility] [id number] [facility] Results Test Description Test Time Test Comments Results Result Co mments Source [facility] FOR GROUP [id number] 11:18:15* Test Item Value Reference Range Interpretation Comme nts Streptococcus pyogenes (grou p A) antigen (test code = 88709-6) Negative Negative Lab Interpretation (test cod e = [id number]) [facility]
--- NOTE | 2023-03-09 23:54 | ER ---
Nurse's Notes [facility] Name: Zion Coronado Age: 27 yrs Sex: Male : 1995 Arrival Date: 03/09/2023 Time: 23:24 Bed 6 Private MD: Diagnosis: Cutaneous abscess of face Presentation: 03/09 23:32 Chief complaint: Patient states: I don't know if this is a spider bite or staph on my vc1 face. Coronavirus screen: Client denies travel out of the [place] in the last 14 days. At this time, the client does not indicate any symptoms associated with coronavirus-19. Ebola Screen: Patient negative for fever greater than or equal to 101.5 degrees Fahrenheit, and additional compatible Ebola Virus Disease symptoms Patient denies exposure to infectious person. Patient denies travel to an Ebola-affected area in the 21 days before illness onset. No symptoms or risks identified at this time. Initial Sepsis Screen: Does the patient meet any 2 criteria? No. Patient's initial sepsis screen is negative. Does the patient have a suspected source of infection? No. Patient's initial sepsis screen is negative. Risk Assessment: Do you want to hurt yourself or someone else? Patient reports no desire to harm self or others. Onset of symptoms was March 05, 2023. 23:32 Method Of Arrival: Ambulatory vc1 23:32 Acuity: LIZZIE 4 vc1 Triage Assessment: 23:34 Bite description: bite sustained to right cheek by an unknown animal, animal vc1 information: vaccination(s) is not applicable. General: Appears in no apparent distress. comfortable, Behavior is calm, cooperative, appropriate for age. Pain: Complains of pain in right cheek Pain does not radiate. Pain currently is 7 out of 10 on a pain scale. Quality of pain is described as pulsating. EENT: No deficits noted. No signs and/or symptoms were reported regarding the EENT system. Neuro: Level of Consciousness is awake, alert, obeys commands, Oriented to person, place, time, situation, Appropriate for age. Cardiovascular: No deficits noted. Respiratory: Airway is patent Respiratory effort is even, unlabored, Respiratory pattern is regular, symmetrical. GI: No deficits noted. No signs and/or symptoms were reported involving the gastrointestinal system. : No deficits noted. No signs and/or symptoms were reported regarding the genitourinary system. Derm: Wound noted right cheek. Historical: - Allergies: 23:34 No Known Allergies; vc1 - PMHx: 23:34 Kidney stones; vc1 - PSHx: 23:34 Cholecystectomy; Tonsillectomy; Adenoid excision; vc1 - Immunization history:: Client reports receiving the 2nd dose of the Covid vaccine. - Social history:: Smoking status: Patient denies any tobacco usage or history of. Screenin:45 [facility] ED Fall Risk Assessment (Adult) History of falling in the last 3 months, rv including since admission No falls in past 3 months (0 pts) Score/Fall Risk Level 0 - 2 = Low Risk Oriented to surroundings, Maintained a safe environment, Educated pt \T\ family on fall prevention, incl call for assistance when getting out of bed, Assessed \T\ reinforced patient's understanding of fall precautions. Abuse screen: Denies threats or abuse. Denies injuries from another. Nutritional screening: No deficits noted. Tuberculosis screening: No symptoms or risk factors identified. Assessment: 23:45 General: Appears comfortable, Behavior is calm, cooperative. Pain: Complains of pain in rv right cheek. Neuro: Level of Consciousness is awake, alert, obeys commands, Oriented to person, place, time, situation. Cardiovascular: Capillary refill < 3 seconds Patient's skin is warm and dry. Respiratory: Airway is patent Respiratory effort is even, unlabored. GI: No signs and/or symptoms were reported involving the gastrointestinal system. : No signs and/or symptoms were reported regarding the genitourinary system. Derm: Skin is intact, Skin is pink, warm \T\ dry. Vital Signs: 23:32 BP 130 / 80; Pulse 99; Resp 17; Temp 98.5; Pulse Ox 100% ; vc1 23:34 Weight 83.91 kg; Height 5 ft. 9 in. ; Pain 7/10; vc1 23:34 Body Mass Index 27.32 (83.91 kg, 175.26 cm) vc1 23:34 Pain Scale: Adult vc1 ED Course: 23:29 Patient arrived in ED. gm2 23:30 [facility] Castro [facility]C [facility] kb 23:31 Nmia Cornejo MD is Attending Physician. kb 23:34 Triage completed. vc1 23:34 Arm band placed on right wrist. vc1 23:42 Ant Darden, RN is Primary Nurse. rv 23:45 Patient has correct armband on for positive identification. Client placed on continuous rv cardiac and pulse oximetry monitoring. NIBP monitoring applied. 23:45 Assist provider with I \T\ D: of an abscess on Set up I\T\D tray. Performed by Evelyn SALCIDO Patient tolerated well. Patient did not have IV access during this emergency room visit. Administered Medications: 23:44 Drug: Trimethoprim-Sulfamethoxazole PO (160 mg-800 mg (DS) 1 tablet PO once Route: PO; rv 23:46 Drug: Lidocaine Infiltration (1 %) 1 vials 5 ml Infiltration once; to bedside {Note: rv administered by Evelyn KING.} Volume: 5 ml; Route: Infiltration; Medication: 23:45 VIS not applicable for this client. rv Outcome: 23:53 Discharge ordered by . kb 23:57 Discharged to home ambulatory, rv 23:57 Condition: good 23:57 Discharge instructions given to patient, Instructed on discharge instructions, follow up and referral plans. medication usage, wound care, Demonstrated understanding of instructions, follow-up care, medications, wound care, Prescriptions given X 1, 23:58 Patient left the ED. rv Signatures: Evelyn Castro FNP-C SUPPLY CHAIN ANALYST-CkAnt Metz, RN RN rv Stephanie Montgomery RN RN vc1 Isaura Connolly gm2 Corrections: (The following items were deleted from the chart) 23:34 23:34 PSHx: Cholecystectomy; vc1 vc1
--- NOTE | 2023-03-09 23:54 | EDPHYS ---
Physician Documentation [facility] Name: Zion Coronado Age: 27 yrs Sex: Male : 1995 Arrival Date: 03/09/2023 Time: 23:24 Bed 6 Private MD: ED Physician Nima Cornejo HPI: 03/09 23:35 This 27 yrs old Black Male presents to ER via Ambulatory with complaints of Insect kb Bite, spider bite to the face. 23:35 Pt reports possible spider bite to right side of face near TMJ that started on kb 03/05/23. States he had some discharge from it. Pain got worse today. Denies fever. Historical: - Allergies: 23:34 No Known Allergies; vc1 - PMHx: 23:34 Kidney stones; vc1 - PSHx: 23:34 Cholecystectomy; Tonsillectomy; Adenoid excision; vc1 - Immunization history:: Client reports receiving the 2nd dose of the Covid vaccine. - Social history:: Smoking status: Patient denies any tobacco usage or history of. ROS: 23:35 Constitutional: Negative for fever, chills, and weight loss, kb 23:35 Skin: Positive for abscess, of the right cheek, 23:35 All other systems are negative, Exam: 23:35 Constitutional: This is a well developed, well nourished patient who is awake, alert, kb and in no acute distress. Head/Face: Normocephalic, atraumatic. ENT: Moist Mucous membranes Respiratory: Respirations even and unlabored. No increased work of breathing. Talking in full sentences MS/ Extremity: Pulses equal, no cyanosis. Neurovascular intact. Full, normal range of motion. Neuro: Awake and alert, GCS 15, oriented to person, place, time, and situation. Moves all extremities. Normal gait. 23:35 Skin: abscess, that is small, of the right cheek, with fluctuance, Vital Signs: 23:32 BP 130 / 80; Pulse 99; Resp 17; Temp 98.5; Pulse Ox 100% ; vc1 23:34 Weight 83.91 kg; Height 5 ft. 9 in. ; Pain 7/10; vc1 23:34 Body Mass Index 27.32 (83.91 kg, 175.26 cm) vc1 23:34 Pain Scale: Adult vc1 Procedures: 23:53 I \T\ D: Incision and drainage was performed for an abscess of the right right cheek kb Prepped with Betadine, Anesthetized with 1 ml's 1% Lidocaine. Incised with #11 blade. Drained moderate amount purulent fluid. Dressing: sterile 4x4 gauze, the patient tolerated the procedure well. MDM: 23:31 Patient medically screened. kb 23:35 Differential diagnosis: abscess, allergic reaction, cellulitis, insect bite. Data kb reviewed: vital signs, nurses notes. Counseling: I had a detailed discussion with the patient and/or guardian regarding the historical points, exam findings, and any diagnostic results supporting the discharge/admit diagnosis, the need for outpatient follow up, a general surgeon, to return to the emergency department if symptoms worsen or persist or if there are any questions or concerns that arise at home. 03/09 23:35 Order name: I\T\D Setup; Complete Time: 23:40 kb Administered Medications: 23:44 Drug: Trimethoprim-Sulfamethoxazole PO (160 mg-800 mg (DS) 1 tablet PO once Route: PO; rv 23:46 Drug: Lidocaine Infiltration (1 %) 1 vials 5 ml Infiltration once; to bedside {Note: rv administered by Evelyn KING.} Volume: 5 ml; Route: Infiltration; Disposition Summary: 03/09/23 23:53 Discharge Ordered Notes: Location: Home kb Condition: Stable kb Diagnosis - Cutaneous abscess of face kb Followup: kb - With: Emergency Department - When: As needed - Reason: Worsening of condition Followup: kb - With: Private Physician - When: 2 - 3 days - Reason: Recheck today's complaints, Continuance of care, Re-evaluation by your physician Discharge Instructions: - Discharge Summary Sheet kb - Skin Abscess, [id number] kb - Incision and Drainage, Care After kb Forms: - Medication Reconciliation Form kb - Thank You Letter kb - Antibiotic Education kb - Prescription Opioid Use kb - Patient Portal Instructions kb - Leadership Thank You Letter kb Prescriptions: - Bactrim DS 800-160 mg Oral Tablet - take 1 tablet ORAL route every 12 hours for 10 days; 20 tablet; Refills: 0, kb Product Selection Permitted Signatures: Evelyn Castro, Ant Hurst RN RN rv Stephanie Montgomery RN RN vc1 Corrections: (The following items were deleted from the chart) 23:34 23:34 PSHx: Cholecystectomy; vc1 vc1
[2023-03-10 06:12] VITALS: BP 130/80; TEMP 98.5; O2SAT 100
== END ==
LOC: ER 23:24
PROC: 0H91XZZ Drainage of Face Skin, External Approach (ICD-10-PCS; principal; 2023-03-09)
DX: L02.01 Cutaneous abscess of face (principal)
CPT/HCPCS: 99284; J2001

== ENCOUNTER 2024-01-05 03:36 | Emergency (ER) | payer OTHER ==
--- OUTSIDE RECORDS SUMMARY | 2024-01-05 03:38 | XMS REPORT | Continuity of Care Document ---
Author Name Unknown Address [address] [place] [address] [facility] thconnect Address 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 [id number] 2019 00:00:00 Problems Condition Name Condition Details Condition Category Status Onset Date Resolution Date Last Treatment Date Treating Clinician Comments Source No known active problems No known active problems Disease [facility] Allergies, Adverse Reactions, Alerts Allergy Name Allergy Type Status Severity Reaction(s) Onset Date Inactive Date Treating Clinician Comments Source NO KNOWN ALLERGIE S Drug Class Active [facility] Social History Social Habit Start Date Stop Date Quantity Comments Source Sexual orientation U [facility] Exposure to SARS-CoV-2 (event) Not sure [facility] Sex assigned at 1995 00:00:00 1995 00:00:00 [facility] Smoking Status Start Date Stop Date Source Tobacco smoking consumption unknown [facility] Medications Ordered Medication Name Filled Medication Name [...] Tissue
Duration of Therapy: Other (see Comments) [facility] doxycycline hyclate (Vibramycin ) capsule 100 mg 2020-03 08:45: 00 12-31 07:50 :00 No 100mg 100 mg, Oral, ONCE, 1 dose, On Wed12/31/20 at 0345, SUSAN
Re ason for Anti-Infec tive: Documented Infection< br>Documen michelle Infection Site: Skin / Soft Tissue
Duration of Therapy: Other (see Comments) [facility] benzonatate (TESSALON PERLES) capsule 200 mg 05-29 11:45: 00 05-29 10:44 :00 No 200mg 200 mg, Oral, ONCE, 1 dose, Wed05/29/20 at 0645, Routine [facility] benzonatate 200 mg capsule 05-29 00:00: 00 Yes [id number] 200mg Take 1 capsule by mouth 3 (three) times daily as needed for Cough. [facility] ibuprofen 800 mg tablet 05-29 00:00: 00 Yes [id number] 800mg Take 1 tablet by mouth every 8 (eight) hours as needed for Pain (scale 4-6). [facility] hydrocodone -acetaminop hen (STAGESIC) 5-500 mg per capsule 2010-03 00:00: 00 Yes 1{capsu le} Take 1 Cap by mouth every 6 (six) hours as needed for Pain. [facility] Vital Signs Vital Name Observation Time Observation Value Comments S [facility] Systolic blood pressure 2024-01-04 07:17:43 120 mm[Hg] [facility] Diastolic blood pressure 2024-01-04 07:17:43 98 mm[Hg] [facility] Heart rate 2024-01-04 07:17:43 97 /min [facility] Body temperature 2024-01-04 07:17:43 37.22 Janelle [facility] Respiratory rate 2024-01-04 07:17:43 17 /min [facility] Body height 2024-01-04 07:16:[address] [facility] Body weight 2024-01-04 07:16:[address] [facility] BMI 2024-01-04 07:16:00 30.13 kg/m2 [facility] Oxygen saturation in Arterial blood by Pulse oximetry 2024-01-04 07:16:00 100 /min [facility] Systolic blood pressure 2020-12-31 07:32:00 140 mm[Hg] [facility] Diastolic blood pressure 2020-12-31 07:32:00 87 mm[Hg] [facility] Heart rate 2020-12-31 07:32:00 91 /min [facility] Respiratory rate 2020-12-31 07:32:00 19 /min [facility] Oxygen saturation in Arterial blood by Pulse oximetry 2020-12-31 07:32:00 100 /min [facility] Body temperature 2020-12-31 06:54:00 37 Janelle [facility] Body height 2020-12-31 06:54:[address] [facility] Body weight 2020-12-31 06:54:[address] [facility] BMI 2020-12-31 06:54:00 30.85 kg/m2 [facility] Systolic blood pressure 2020-05-29 10:13:00 132 mm[Hg] [facility] Diastolic blood pressure 2020-05-29 10:13:00 81 mm[Hg] [facility] Heart rate 2020-05-29 10:13:00 89 /min [facility] Body temperature 2020-05-29 10:13:00 36.89 Janelle [facility] Respiratory rate 2020-05-29 10:13:00 16 /min [facility] Body height 2020-05-29 10:13:[address] [facility] Body weight 2020-05-29 10:13:[address] [facility] BMI 2020-05-29 10:13:00 29.56 kg/m2 [facility] Oxygen saturation in Arterial blood by Pulse oximetry 2020-05-29 10:13:00 100 /min [facility] Systolic blood pressure 2020-05-29 10:13:00 132 mm[Hg] [facility] Diastolic blood pressure 2020-05-29 10:13:00 81 mm[Hg] [facility] Heart rate 2020-05-29 10:13:00 89 /min [facility] Body temperature 2020-05-29 10:13:00 36.89 Janelle [facility] Respiratory rate 2020-05-29 10:13:00 16 /min [facility] Body height 2020-05-29 10:13:[address] [facility] Body weight 2020-05-29 10:13:[address] [facility] BMI 2020-05-29 10:13:00 29.56 kg/m2 [facility] Oxygen saturation in Arterial blood by Pulse oximetry 2020-05-29 10:13:00 100 /min [facility] Procedures Procedure Date / Time Performed Performing Clinicia n Source CONSENT/REFUSAL FOR DIAGNOSIS AND TREATMENT 2020-12-31 06:43:35 Doctor Unassigned, [place] [facility] XR CHEST 1 VW 2020-05-29 10:55:05 Dulce Skaggs Uni [facility] RAPID STREP SCREEN FOR GROUP A 2020-05-29 10:44:00 Dulce Skaggs [facility] COVID-19 (ID NOW RAPID TESTING) 2020-05-29 10:44:00 Dulce Skaggs [facility] NOTICE OF PRIVACY PRACTICES 2020-05-29 10:02:10 Doctor Unassigned, [place] [facility] CONSENT/REFUSAL FOR DIAGNOSIS AND TREATMENT 2020-05-29 10:01:55 Doctor Unassigned, [place] [facility] Encounters Start Date/Time End Date/Time Encounter Type Admission Type Attending [facility] Care Facility Care Department Encounter ID Source 2021-01-14 07:46:37 Emergency [facility] [id number] [facility] 2021-01-12 06:31:25 Emergency [facility] [id number] [facility] 2024-01-04 02:19:00 2024-01-04 04:52:00 Emergency X LAMB ERT [id number] [facility] 2024-01-04 02:19:00 2024-01-04 04:52:00 Emergency [facility] [id number] [id number] [facility] 2020-12-31 01:50:00 2020-12-31 03:18:00 [facility] [id number] [id number] [facility] 2020-05-29 05:14:00 2020-05-29 06:47:00 [facility] [id number] [id number] [id number] 2020-05-29 05:14:00 2020-05-29 06:47:00 [facility] [id number] [id number] [id number] [facility] 2020-05-29 00:00:00 2020-05-29 00:00:00 Orders Only Doctor Unassigned, [place] [facility] [id number] [id number] [id number] 2020-05-29 00:00:00 2020-05-29 00:00:00 Orders Only Doctor Unassigned, [place] [facility] [id number] [id number] [id number] [id number] [facility] 2020-04-23 12:00:00 2020-04-23 12:00:00 Outpatient ODELL GUZMÁN [facility] [id number] [facility] 2019-10-28 14:41:41 2019-10-28 15:01:41 Laboratory Only Lab, [facility] [address] [id number] [id number] [id number] 2019-10-28 14:41:41 2019-10-28 15:01:41 Laboratory Only Lab, [facility] [id number] [id number] [id number] [id number] [facility] 2019-10-28 14:40:00 2019-10-28 14:40:00 Outpatient KAIT MARTÍNEZ [facility] [id number] [facility] 2019-08-24 09:00:00 2019-08-24 09:00:00 Outpatient DEYVI ESPINOZA [facility] [id number] [facility] Results Test Description Test Time Test Comments Results Result Co mments Source [facility] [id number] 11:18:15* Test Item Value Reference Range Interpretation Comme nts Streptococcus pyogenes (grou p A) antigen (test code = 57522-8) Negative Negative Lab Interpretation (test cod e = [id number]) Normal [facility] Notes Date/Time Note Provider Source 2024-01-04 02:14:35 Arrived ambulatory C/o cyst on groin area, non painful but wants to make sure its not infected Cheri Larios RN [facility]
[2024-01-05 04:56] LABS: Absolute Eosinophils 0.1 K/uL (0-0.5); Absolute Lymphocytes (CBC) 2.3 K/uL (0.7-4.9); Absolute Monocytes 1.6 K/uL (0.1-1.3); Absolute Neutrophil 11.5 K/uL (1.8-8.0); Basophils % 0.3 % (0-1.3); Eosinophils % 0.4 % (0-4.4); Hematocrit 43.4 % (39.6-49.0); Hemoglobin 14.5 g/dL (13.6-17.9); Lymphocytes % 14.7 % (15.3-44.8); MCH 30.2 pg (27.0-35.0); MCHC 33.3 g/dL (32.0-36.0); MCV 90.6 fL (80-100); MPV 8.1 fL (7.6-11.3); Monocytes % 10.5 % (3.3-12.3); Neutrophils % 74.1 % (41.7-73.7); Nucleated Red Blood Cells % 0.1 % (0-0); Platelets 282 thou/uL (152-406); RBC Red Blood Cell Count 4.79 M/uL (4.33-5.43); Red Cell Distribution Width 12.9 % (12.1-15.2)
[2024-01-05 05:11] LABS: Albumin 3.3 g/dL (3.4-5.0); Albumin/Globulin Ratio 0.8 (1.1-1.8); Anion Gap 10.4 mEq/L (5.0-15.0); Potassium 3.4 mEq/L (3.5-5.1); Protein, Total 7.3 g/dL (6.4-8.2)
[2024-01-05 05:15] LABS: Sqamous Epithelial None Seen /HPF (None Seen); Urine Bacteria <20 /HPF (<20); Urine Bilirubin NEGATIVE (Negative); Urine Blood Negative (Negative); Urine Clarity Clear (Clear); Urine Color Yellow (Yellow); Urine Culture Reflex Order NOT NEEDED; Urine Glucose NEGATIVE (Negative); Urine Ketones NEGATIVE (Negative); Urine Microscopic Reflex YN ORDER UMIC; Urine Mucus 2+ /HPF (None Seen); Urine Nitrite NEGATIVE (Negative); Urine Protein TRACE (Negative); Urine RBC None Seen /HPF (None Seen); Urine Urobilinogen 2+ (Normal); Urine WBC <5 /HPF (<5)
[2024-01-05] MEDS ORDERED: SMZ./TMP. 800/160 MG TABLET ONE (06:57)
[2024-01-05] MEDS ORDERED: CEPHALEXIN 250 MG CAP ONE (06:57)
--- NOTE | 2024-01-05 07:29 | EDPHYS ---
Physician Documentation [facility] Name: Zion Coronado Age: 28 yrs Sex: Male : 1995 Arrival Date: 01/05/2024 Time: 03:36 Bed 18 Private MD: JOSE R Physician Osiel Castaneda HPI: 01/04 03:55 This 28 yrs old Black Male presents to ER via Ambulatory with complaints of Abscess. sp4 04:25 Pleasant 28-year-old male with no significant PMH, presents with acute left-sided sp4 scrotal mass associated with the discomfort.. Historical: - Allergies: 03:45 No Known Allergies; lg3 - Home Meds: 03:45 Lexapro 10 mg Oral tablet daily [Active]; Hydroxyzine Oral [Active]; Bupropion Oral lg3 [Active]; - PMHx: 03:45 Anxiety; Kidney stones; lg3 - PSHx: 03:45 Adenoid excision; Cholecystectomy; Tonsillectomy; lg3 - Immunization history:: Adult Immunizations up to date. - Infectious Disease History:: Denies. - Social history:: Smoking status: Patient denies any tobacco usage or history of. Patient uses alcohol, only on a social basis. Patient/guardian denies using street drugs. - Family history:: not pertinent. ROS: 04:25 Constitutional: Negative for fever, chills, and weight loss, Positive for left sp4 scrotal mass 04:25 All other systems are negative, Exam: 04:25 Constitutional: This is a well developed, well nourished patient who is awake, alert, sp4 and in no acute distress. Head/Face: Normocephalic, atraumatic. Eyes: Pupils equal round and reactive to light, extra-ocular motions intact. Lids and lashes normal. Conjunctiva and sclera are not injected. Cornea within normal limits. Periorbital areas with no swelling, redness, or edema. ENT: Nares patent. No nasal discharge, no septal abnormalities noted. Tympanic membranes are normal and external auditory canals are clear. Oropharynx with no redness, swelling, or masses, exudates, or evidence of obstruction, uvula midline. Mucous membranes moist. Neck: Trachea midline, no thyromegaly or masses palpated, and no cervical lymphadenopathy. Supple, full range of motion without nuchal rigidity, or vertebral point tenderness. Chest/axilla: Normal chest wall appearance and motion. Nontender with no deformity. No lesions are appreciated. Cardiovascular: Regular rate and rhythm with a normal S1 and S2. No gallops, murmurs, or rubs. Normal PMI, no JVD. No pulse deficits. Respiratory: Lungs have equal breath sounds bilaterally, clear to auscultation and percussion. No rales, rhonchi or wheezes noted. No increased work of breathing, no retractions or nasal flaring. Abdomen/GI: Soft, with normal bowel sounds. No distension or tympany. No guarding or rebound. No evidence of tenderness throughout. Back: No spinal tenderness. No costovertebral tenderness. Male : Normal genitalia with no discharge or lesions. Positive for left scrotal mass, freely movable appears to be part of left scrotal wall. No testicular mass by palpation, no inguinal hernias, no lymphadenopathy, no rashes or lesions Skin: Warm, dry with normal turgor. Normal color with no rashes, no lesions, and no evidence of cellulitis. MS/ Extremity: Pulses equal, no cyanosis. Neurovascular intact. Full, normal range of motion. Neuro: Awake and alert, GCS 15, oriented to person, place, time, and situation. Cranial nerves II-XII grossly intact. Motor strength 5/5 in all extremities. Sensory grossly intact. Psych: Awake, alert, with orientation to person, place and time. Behavior, mood, and affect are within normal limits Vital Signs: 03:42 BP 134 / 94; Pulse 98; Resp 17 S; Temp 98.8(O); Pulse Ox 99% on R/A; Weight 95.25 kg lg3 (R); Height 5 ft. 10 in. (R); Pain 5/10; 04:49 BP 128 / 86; Pulse 92; Resp 17; Pulse Ox 98% on R/A; Pain 0/10; rg5 05:45 BP 122 / 82; Pulse 88; Resp 17 S; Pulse Ox 99% ; Pain 0/10; rg5 06:47 BP 120 / 83; Pulse 81; Resp 17; Temp 98(O); Pulse Ox 99% on R/A; Pain 0/10; rg5 03:42 Body Mass Index 30.13 (95.25 kg, 177.8 cm) lg3 03:42 Pain Scale: Adult lg3 04:49 Pain Scale: Adult rg5 05:45 Pain Scale: Adult rg5 06:47 Pain Scale: Adult rg5 Adair Coma Score: 04:25 Eye Response: spontaneous(4). Motor Response: obeys commands(6). Verbal Response: sp4 oriented(5). Total: 15. MDM: 03:56 Medical Screening Exam initiated sp4 04:25 Differential diagnosis: abscess, allergic reaction, cellulitis, insect bite. Data sp4 reviewed: vital signs, nurses notes, lab test result(s), radiologic studies, ultrasound. 01/04 04:23 Order name: CBC with Diff; Complete Time: 06:45 sp4 01/04 04:23 Order name: CMP; Complete Time: 06:45 sp4 01/04 04:23 Order name: Urinalysis w/ reflexes; Complete Time: 06:45 sp4 01/04 04:25 Order name: US Scrotum Testicles sp4 01/04 04:23 Order name: IV Saline Lock; Complete Time: 04:48 sp4 01/04 04:23 Order name: Labs collected and sent; Complete Time: 04:48 sp4 Administered Medications: 06:55 Drug: Trimethoprim-Sulfamethoxazole PO (160 mg-800 mg (DS) 1 tablet PO once Route: PO; rg5 07:48 Follow up: Response: No adverse reaction db 06:55 Drug: Cephalexin PO 500 mg PO once Route: PO; rg5 07:48 Follow up: Response: No adverse reaction db Disposition Summary: 01/05/24 07:28 Discharge Ordered Problem: new aissatou Symptoms: have improved aissatou Condition: Stable aissatou Diagnosis - Cutaneous abscess, unspecified - left scroutum, small aissatou Followup: aissatou - With: Private Physician - When: 1 - 2 days - Reason: Recheck today's complaints, Continuance of care, Re-evaluation by your physician Followup: aissatou - With: Lucas Mcgowan MD - When: 1 - 2 days - Reason: Recheck today's complaints, Re-evaluation by your physician Followup: aissatou - With: Owen Solorio MD - When: 1 - 2 days - Reason: Recheck today's complaints, Re-evaluation by your physician Discharge Instructions: - Skin Abscess aissatou - Skin Abscess, [id number] aissatou - Discharge Summary Sheet sp4 - Scrotal Swelling sp4 Forms: - Medication Reconciliation Form aissatou - Antibiotic Education aissatou - Prescription Opioid Use aissatou - Patient Portal Instructions aissatou - Leadership Thank You Letter aissatou Prescriptions: - Cephalexin 500 mg Oral Capsule - take 1 capsule ORAL route every 12 hours for 10 days; 20 capsule; Refills: 0, sp4 Product Selection Permitted - Bactrim DS 800-160 mg Oral Tablet - take 1 tablet ORAL route every 12 hours for 10 days; 20 tablet; Refills: 0, sp4 Product Selection Permitted Signatures: Dispatcher [employer] EDMS Osiel Castaneda MD MD cha Able, Lacie RN RN lg3 Nima Cornejo MD MD sp4 Maykel Robles RN RN rgCarly Lunsford RN db Corrections: (The following items were deleted from the chart) 04:25 04:25 Scrotum Testicles+US.RAD.BRZ ordered. EDKS EDMS 04:34 04:25 Constitutional: Negative for fever, chills, and weight loss, Positive for sp4 vomiting after fatty meal sp4
--- NOTE | 2024-01-05 07:29 | ER ---
Nurse's Notes [facility] Name: Zion Coronado Age: 28 yrs Sex: Male : 1995 Arrival Date: 01/05/2024 Time: 03:36 Bed 18 Private MD: Diagnosis: Cutaneous abscess, unspecified-left scroutum, small Presentation: 01/04 03:42 Chief complaint: Patient states: i think i have a cyst or an abscess near my left lg3 testicle and i got it caught in my zipper and it started bleeding. Coronavirus screen: Client denies travel out of the [place] in the last 14 days. At this time, the client does not indicate any symptoms associated with coronavirus-19. Ebola Screen: No symptoms or risks identified at this time. Initial Sepsis Screen: Does the patient meet any 2 criteria? No. Patient's initial sepsis screen is negative. Does the patient have a suspected source of infection? No. Patient's initial sepsis screen is negative. Risk Assessment: Do you want to hurt yourself or someone else? Patient reports no desire to harm self or others. Onset of symptoms was January 05, 2024. 03:42 Method Of Arrival: Ambulatory lg3 03:42 Acuity: LIZZIE 3 lg3 Triage Assessment: 03:45 General: Appears in no apparent distress. comfortable, Behavior is calm, cooperative. lg3 Pain: Complains of pain in left testicle Pain does not radiate. Pain currently is 4 out of 10 on a pain scale. EENT: No deficits noted. No signs and/or symptoms were reported regarding the EENT system. Neuro: No deficits noted. [place]ino Agitation-Sedation Scale (RASS): 0 - Alert and Calm Level of Consciousness is awake, alert, obeys commands, Oriented to person, place, time, situation. Cardiovascular: No deficits noted. Denies chest pain, shortness of breath, Capillary refill < 3 seconds Clubbing of nail beds is absent JVD is absent Patient's skin is warm and dry. Respiratory: No deficits noted. Airway is patent Respiratory effort is even, unlabored, Respiratory pattern is regular, symmetrical. GI: No deficits noted. No signs and/or symptoms were reported involving the gastrointestinal system. : No signs and/or symptoms were reported regarding the genitourinary system. Derm: Reports bump to posterior left testicle. Musculoskeletal: No deficits noted. No signs and/or symptoms reported regarding the musculoskeletal system. Circulation, motion, and sensation intact. Range of motion: intact in all extremities. Historical: - Allergies: 03:45 No Known Allergies; lg3 - Home Meds: 03:45 Lexapro 10 mg Oral tablet daily [Active]; Hydroxyzine Oral [Active]; Bupropion Oral lg3 [Active]; - PMHx: 03:45 Anxiety; Kidney stones; lg3 - PSHx: 03:45 Adenoid excision; Cholecystectomy; Tonsillectomy; lg3 - Immunization history:: Adult Immunizations up to date. - Infectious Disease History:: Denies. - Social history:: Smoking status: Patient denies any tobacco usage or history of. Patient uses alcohol, only on a social basis. Patient/guardian denies using street drugs. - Family history:: not pertinent. Screenin:50 [facility] ED Fall Risk Assessment (Adult) History of falling in the last 3 months, rg5 including since admission No falls in past 3 months (0 pts) Confusion or Disorientation No (0 pts) Intoxicated or Sedated No (0 pts) Impaired Gait No (0 pts) Mobility Assist Device Used No (0 pt) Altered Elimination No (0 pt) Score/Fall Risk Level 0 - 2 = Low Risk Oriented to surroundings, Maintained a safe environment, Hourly rounding (assess needs \T\ fall precautionary measures) done. Abuse screen: Denies threats or abuse. Nutritional screening: No deficits noted. Tuberculosis screening: No symptoms or risk factors identified. Assessment: 04:50 General: Appears in no apparent distress. Behavior is calm, cooperative, appropriate rg5 for age. Pain: Denies pain. Neuro: Level of Consciousness is awake, alert, obeys commands, Oriented to person, place, time. Cardiovascular: No deficits noted. Heart tones S1 S2 Capillary refill < 3 seconds Patient's skin is warm and dry. Rhythm is regular. Respiratory: Airway is patent Trachea midline Respiratory effort is even, unlabored, Respiratory pattern is regular, symmetrical. GI: Abdomen is round non-distended, Bowel sounds present X 4 quads. : Lesions noted Swelling noted Reports Scrotal pain: sudden onset. EENT: No signs and/or symptoms were reported regarding the EENT system. Derm: Skin is intact, Skin is dry, Skin is normal. Musculoskeletal: Circulation, motion, and sensation intact. Range of motion: intact in all extremities. 04:54 Reassessment: Patient and/or family updated on plan of care and expected duration. Pain rg5 level reassessed. Patient is alert, oriented x 3, equal unlabored respirations, skin warm/dry/pink. Patient states symptoms have improved. 05:45 Reassessment: Patient and/or family updated on plan of care and expected duration. Pain rg5 level reassessed. Patient is alert, oriented x 3, equal unlabored respirations, skin warm/dry/pink. 06:47 Reassessment: Patient and/or family updated on plan of care and expected duration. Pain rg5 level reassessed. Patient is alert, oriented x 3, equal unlabored respirations, skin warm/dry/pink. 07:03 Reassessment: Patient appears in no apparent distress at this time. Patient and/or db family updated on plan of care and expected duration. Pain level reassessed. Patient is alert, oriented x 3, equal unlabored respirations, skin warm/dry/pink. 07:47 Reassessment: Patient appears in no apparent distress at this time. Patient and/or db family updated on plan of care and expected duration. Pain level reassessed. Patient is alert, oriented x 3, equal unlabored respirations, skin warm/dry/pink. Vital Signs: 03:42 BP 134 / 94; Pulse 98; Resp 17 S; Temp 98.8(O); Pulse Ox 99% on R/A; Weight 95.25 kg lg3 (R); Height 5 ft. 10 in. (R); Pain 5/10; 04:49 BP 128 / 86; Pulse 92; Resp 17; Pulse Ox 98% on R/A; Pain 0/10; rg5 05:45 BP 122 / 82; Pulse 88; Resp 17 S; Pulse Ox 99% ; Pain 0/10; rg5 06:47 BP 120 / 83; Pulse 81; Resp 17; Temp 98(O); Pulse Ox 99% on R/A; Pain 0/10; rg5 03:42 Body Mass Index 30.13 (95.25 kg, 177.8 cm) lg3 03:42 Pain Scale: Adult lg3 04:49 Pain Scale: Adult rg5 05:45 Pain Scale: Adult rg5 06:47 Pain Scale: Adult rg5 [place] Coma Score: 04:25 Eye Response: spontaneous(4). Motor Response: obeys commands(6). Verbal Response: sp4 oriented(5). Total: 15. ED Course: 03:37 Patient arrived in ED. jj6 03:45 Triage completed. lg3 03:45 Arm band placed on right wrist. lg3 03:55 Nima Cornejo MD is Attending Physician. sp4 04:12 Maykel Robles, RN is Primary Nurse. rg5 04:50 Patient has correct armband on for positive identification. Placed in gown. Call light rg5 in reach. Side rails up X 1. 04:50 No provider procedures requiring assistance completed. Inserted saline lock: 20 gauge rg5 in right hand, using aseptic technique. Blood collected. Flushed with 10 mL NS. 05:07 Scrotum Testicles In Process Unspecified. EDMS 07:14 Attending Physician role handed off by Nima Cornejo MD aissatou 07:14 Osiel Castaneda MD is Attending Physician. aissatou 07:26 Lucas Mcgowan MD is Referral Physician. aissatou 07:27 Owen Solorio MD is Referral Physician. aissatou 07:47 Provided Education on: DISCHARGE. db 07:47 Patient did not have IV access during this emergency room visit. db Administered Medications: 06:55 Drug: Trimethoprim-Sulfamethoxazole PO (160 mg-800 mg (DS) 1 tablet PO once Route: PO; rg5 07:48 Follow up: Response: No adverse reaction db 06:55 Drug: Cephalexin PO 500 mg PO once Route: PO; rg5 07:48 Follow up: Response: No adverse reaction db Medication: 04:50 VIS not applicable for this client. rg5 Outcome: 07:28 Discharge ordered by . aissatou 07:47 Discharged to home ambulatory, db 07:47 Condition: stable 07:47 Discharge instructions given to patient, Instructed on discharge instructions, follow up and referral plans. 07:47 Prescriptions given X 2, db 07:48 Patient left the ED. db Signatures: Dispatcher [employer] EDIN Osiel Castaneda MD MD cha Able, Lacie, RN RN lg3 Tiny Wang jj6 Carly Hamilton RN RN Nima Justice MD MD sp4 Gallardo, Maykel, RN RN rg5 Corrections: (The following items were deleted from the chart) 04:55 04:54 BP 132 / 63; Pulse 60bpm; Resp 17bpm; Pulse Ox 96% RA; rg5 rg5
--- NOTE | 2024-01-05 12:59 | RAD REPORT ---
US SCROTUM INDICATION: Left scrotal mass. COMPARISON: None TECHNIQUE: Colvin scale imaging and duplex Doppler ultrasound examination of the scrotum and its conten ts were performed. FINDINGS: SCROTUM: The visualized left scrotal wall at the area of pain is edematous with increased echogenicit y. There is scattered internal color flow. Findings could represent phlegmon in the appropriate clinical setting. RIGHT TESTIS: Size: 3.4 x 2.1 x 3.1 cm. Echotexture: Normal. Blood flow: Normal. Epididymus: Normal in size and echogenicity. The epididymal head measures 1.4 x 1.0 x 0.7 cm. Hydrocele: None. Varicocele: None. Inguinal: The spermatic cord is normal. Masses: None. LEFT TESTIS: Size: 3.7 x 2.8 x 3.3 cm. Echotexture: Normal. Blood flow: Normal. Epididymus: Normal in size and echogenicity. The epididymal head measures 1.3 x 0.9 x 0.7 cm. Hydrocele: None. Varicocele: None. Inguinal: The spermatic cord is normal. Masses: None. OTHER: None. IMPRESSION: 1. Edematous and echogenic left scrotal wall at the area of symptom. There is scattered internal co austen flow. Findings could represent phlegmon in the appropriate clinical setting. 2. No testicular torsion or epididymoorchitis. Electronically signed by: Katherine Yuan MD 01/05/2024 07:11 AM CDT Due to temporary technical issues with the PACS/[employer] reporting system, reports are being arleen d by the in-house radiologist without review as a courtesy to ensure prompt reporting the interpreting radiologist is fully responsible for the content of the report. Transcribed Date/Time: 01/05/2024 12:58 PM
[2024-01-05 13:25] VITALS: O2SAT 99
[2024-01-05 13:26] VITALS: BP 120/83; TEMP 98
== END 2024-01-05 07:48 | disposition home or self-care (01) ==
LOC: ER 03:36
DX: N49.2 Inflammatory disorders of scrotum (principal)
CPT/HCPCS: 36415; 76870; 80053; 81001; 85025; 99284

== ENCOUNTER 2024-01-06 01:32 | Emergency (ER) | payer OTHER ==
--- OUTSIDE RECORDS SUMMARY | 2024-01-06 01:36 | XMS REPORT | Continuity of Care Document ---
Author Name Unknown Address [address] [place] [address] [facility] thconnect Address [address] [place] [address] Care Team Providers Care [employer] Pl[employer] Name Role Phone BOY WALTER Primary Care Physician Unavailclifton Skaggs MD, Dulce Avery Attending Clinician [phone] Doctor Unassigned, [place] Attending Clinician U ODELL Abernathy Attending Clinician Unavailable Lab, Adc Fam Pob I Attending Clinician UnavailKait Mac Attending Clinician [phone] KAIT RODAS Attending Clinician Unavailable DEYVI GARDNER Attending Clinician Unavailable Payers Payer Name Policy Type Policy Number Effective Date Expirati on Date Source [facility] [id number] 2019 00:00:00 Problems Condition Name Condition Details Condition Category Status Onset Date Resolution Date Last Treatment Date Treating Clinician Comments Source No known active problems No known active problems Disease [facility] Allergies, Adverse Reactions, Alerts Allergy Name Allergy Type Status Severity Reaction(s) Onset Date Inactive Date Treating Clinician Comments Source NO KNOWN ALLERGIE S Drug Class Active [facility] Social History Social Habit Start Date Stop Date Quantity Comments Source Sexual orientation U [facility] Exposure to SARS-CoV-2 (event) Not sure [facility] Sex assigned at 1995 00:00:00 1995 00:00:00 [facility] Smoking Status Start Date Stop Date Source Tobacco smoking consumption unknown [facility] Medications Ordered Medication Name Filled Medication Name [...] Tissue
Duration of Therapy: Other (see Comments) [facility] doxycycline hyclate (Vibramycin ) capsule 100 mg 2020-03 08:45: 00 12-31 07:50 :00 No 100mg 100 mg, Oral, ONCE, 1 dose, On Wed12/31/20 at 0345, SUSAN
Re ason for Anti-Infec tive: Documented Infection< br>Documen michelle Infection Site: Skin / Soft Tissue
Duration of Therapy: Other (see Comments) [facility] benzonatate (TESSALON PERLES) capsule 200 mg 05-29 11:45: 00 05-29 10:44 :00 No 200mg 200 mg, Oral, ONCE, 1 dose, Wed05/29/20 at 0645, Routine [facility] benzonatate 200 mg capsule 05-29 00:00: 00 Yes [id number] 200mg Take 1 capsule by mouth 3 (three) times daily as needed for Cough. [facility] ibuprofen 800 mg tablet 05-29 00:00: 00 Yes [id number] 800mg Take 1 tablet by mouth every 8 (eight) hours as needed for Pain (scale 4-6). [facility] hydrocodone -acetaminop hen (STAGESIC) 5-500 mg per capsule 2010-03 00:00: 00 Yes 1{capsu le} Take 1 Cap by mouth every 6 (six) hours as needed for Pain. [facility] Vital Signs Vital Name Observation Time Observation Value Comments S ource Systolic blood pressure 2024-01-04 07:17:43 120 mm[Hg] [facility] Diastolic blood pressure 2024-01-04 07:17:43 98 mm[Hg] [facility] Heart rate 2024-01-04 07:17:43 97 /min [facility] Body temperature 2024-01-04 07:17:[address] [facility] Respiratory rate 2024-01-04 07:17:43 17 /min [facility] Body height 2024-01-04 07:16:00 177.8 cm [facility] Body weight 2024-01-04 07:16:00 95.255 kg [facility] BMI 2024-01-04 07:16:00 30.13 kg/m2 [facility] Oxygen saturation in Arterial blood by Pulse oximetry 2024-01-04 07:16:00 100 /min [facility] Systolic blood pressure 2020-12-31 07:32:00 140 mm[Hg] [facility] Diastolic blood pressure 2020-12-31 07:32:00 87 mm[Hg] [facility] Heart rate 2020-12-31 07:32:00 91 /min Un[facility] Respiratory rate 2020-12-31 07:32:00 19 /min [facility] Oxygen saturation in Arterial blood by Pulse oximetry 2020-12-31 07:32:00 100 /min [facility] Body temperature 2020-12-31 06:54:[address] [facility] Body height 2020-12-31 06:54:00 177.8 cm [facility] Body weight 2020-12-31 06:54:00 97.523 kg [facility] BMI 2020-12-31 06:54:00 30.85 kg/m2 [facility] Systolic blood pressure 2020-05-29 10:13:00 132 mm[Hg] [facility] Diastolic blood pressure 2020-05-29 10:13:00 81 mm[Hg] [facility] Heart rate 2020-05-29 10:13:00 89 /min [facility] Body temperature 2020-05-29 10:13:[address] [facility] Respiratory rate 2020-05-29 10:13:00 16 /min [facility] Body height 2020-05-29 10:13:00 177.8 cm [facility] Body weight 2020-05-29 10:13:00 93.441 kg [facility] BMI 2020-05-29 10:13:00 29.56 kg/m2 [facility] Oxygen saturation in Arterial blood by Pulse oximetry 2020-05-29 10:13:00 100 /min [facility] Systolic blood pressure 2020-05-29 10:13:00 132 mm[Hg] [facility] Diastolic blood pressure 2020-05-29 10:13:00 81 mm[Hg] [facility] Heart rate 2020-05-29 10:13:00 89 /min [facility] Body temperature 2020-05-29 10:13:[address] [facility] Respiratory rate 2020-05-29 10:13:00 16 /min [facility] Body height 2020-05-29 10:13:00 177.8 cm [facility] Body weight 2020-05-29 10:13:00 93.441 kg [facility] BMI 2020-05-29 10:13:00 29.56 kg/m2 [facility] Oxygen saturation in Arterial blood by Pulse oximetry 2020-05-29 10:13:00 100 /min [facility] Procedures Procedure Date / Time Performed Performing Clinicia n Source CONSENT/REFUSAL FOR DIAGNOSIS AND TREATMENT 2020-12-31 06:43:35 Doctor Unassigned, [place] [facility] XR CHEST 1 VW 2020-05-29 10:55:05 Dulce Skaggs [facility] RAPID STREP SCREEN FOR GROUP A 2020-05-29 10:44:[address] [facility] COVID-19 (ID NOW RAPID TESTING) 2020-05-29 10:44:[address] [facility] NOTICE OF PRIVACY PRACTICES 2020-05-29 10:02:10 Doctor Unassigned, [place] [facility] CONSENT/REFUSAL FOR DIAGNOSIS AND TREATMENT 2020-05-29 10:01:55 Doctor Unassigned, [place] [facility] Encounters Start Date/Time End Date/Time Encounter Type Admission Type Attending [facility] Care Facility Care Department Encounter ID Source 2021-01-14 07:46:37 Emergency [facility] [id number] [facility] 2021-01-12 06:31:25 Emergency [facility] [id number] [facility] 2024-01-04 02:19:00 2024-01-04 04:52:00 Emergency [facility] [id number] [facility] 2024-01-04 02:19:00 2024-01-04 04:52:00 Emergency [facility] [id number] [facility] 2020-12-31 01:50:00 2020-12-31 03:18:00 [facility] [id number] [facility] 2020-05-29 05:14:00 2020-05-29 06:47:00 Emergency [facility] [id number] [id number] 2020-05-29 05:14:00 2020-05-29 06:47:00 Emergency [facility] [id number] [facility] 2020-05-29 00:00:00 2020-05-29 00:00:00 Orders Only Doctor Unassigned, [place] [facility] [id number] [id number] [id number] 2020-05-29 00:00:00 2020-05-29 00:00:00 Orders Only Doctor Unassigned, [place] [facility] [id number] [id number] [id number] [facility] 2020-04-23 12:00:00 2020-04-23 12:00:00 Outpatient ODELL GUZMÁN [facility] [id number] [facility] 2019-10-28 14:41:41 2019-10-28 15:01:41 Laboratory Only Lab, [facility] [address] [id number] [id number] [id number] [id number] 2019-10-28 14:41:41 2019-10-28 15:01:41 Laboratory Only Lab, [facility] [id number] [id number] [facility] 2019-10-28 14:40:00 2019-10-28 14:40:00 Outpatient KAIT MARTÍNEZ [facility] [id number] [facility] 2019-08-24 09:00:00 2019-08-24 09:00:00 Outpatient DEYVI ESPINOZA [facility] [id number] [facility] Results Test Description Test Time Test Comments Results Result Co mments Source [facility] FOR GROUP [id number] 11:18:15* Test Item Value Reference Range Interpretation Comme nts Streptococcus pyogenes (grou p A) antigen (test code = 86571-0) Negative Negative Lab Interpretation (test cod e = [id number]) Normal [facility] Notes Date/Time Note Provider Source 2024-01-04 02:14:35 Arrived ambulatory C/o cyst on groin area, non painful but wants to make sure its not infected Cheri Larios RN [facility]
[2024-01-06] MEDS ORDERED: NA CHLORIDE 0.9% 100 ML ONE (01:56)
[2024-01-06] MEDS ORDERED: CEFEPIME 2 GM VIAL ONE (01:56)
[2024-01-06] MEDS ORDERED: KETOROLAC 30 MG/ML INJ ONE (01:56)
[2024-01-06] MEDS ORDERED: MORPHINE 4 MG/ML SYR ONE ×2 (01:56→04:26)
[2024-01-06] MEDS ORDERED: NA CHLORIDE 0.9% 2,000 ML ONE (01:57)
[2024-01-06] MEDS ORDERED: VANCOMYCIN 1 GM/VIAL ONE (02:34)
[2024-01-06] MEDS ORDERED: NA CHLORIDE 0.9% 500 ML ONE (02:35)
[2024-01-06] MEDS ORDERED: ONDANSETRON 4 MG/2 ML VIAL ONE (02:36)
[2024-01-06 02:52] LABS: Absolute Eosinophils 0.1 K/uL (0-0.5); Absolute Lymphocytes (CBC) 2.4 K/uL (0.7-4.9); Absolute Monocytes 1.3 K/uL (0.1-1.3); Basophils % 0.2 % (0-1.3); Eosinophils % 0.5 % (0-4.4); Hematocrit 42.2 % (39.6-49.0); Hemoglobin 14.3 g/dL (13.6-17.9); Lymphocytes % 16.2 % (15.3-44.8); MCH 30.7 pg (27.0-35.0); MCHC 33.9 g/dL (32.0-36.0); MCV 90.6 fL (80-100); MPV 8.5 fL (7.6-11.3); Monocytes % 8.9 % (3.3-12.3); Neutrophils % 74.2 % (41.7-73.7); Platelets 291 thou/uL (152-406); RBC Red Blood Cell Count 4.66 M/uL (4.33-5.43); Red Cell Distribution Width 13.1 % (12.1-15.2)
[2024-01-06 03:00] LABS: Albumin 3.4 g/dL (3.4-5.0); Albumin/Globulin Ratio 0.9 (1.1-1.8); Anion Gap 8.5 mEq/L (5.0-15.0); Bilirubin Total 1.7 mg/dL (0.2-1.0); Globulin 3.8 g/dL (2.3-3.5); Potassium 3.5 mEq/L (3.5-5.1); Protein, Total 7.2 g/dL (6.4-8.2)
--- NOTE | 2024-01-06 03:38 | ER ---
Nurse's Notes [facility] Name: Zion Coronado Age: 28 yrs Sex: Male : 1995 Arrival Date: 01/06/2024 Time: 01:32 Bed 14 Private MD: Diagnosis: Cutaneous abscess, furuncle and carbuncle of other sites;Acute Left scrotal wall abscess;Scrotal Wall Phlegmon Presentation: 01/05 01:53 Chief complaint: Patient states: I have an abscess on my groin. Coronavirus screen: At jb4 this time, the client does not indicate any symptoms associated with coronavirus-19. Ebola Screen: No symptoms or risks identified at this time. Initial Sepsis Screen: Does the patient meet any 2 criteria? No. Patient's initial sepsis screen is negative. Does the patient have a suspected source of infection? No. Patient's initial sepsis screen is negative. Risk Assessment: Do you want to hurt yourself or someone else? Patient reports no desire to harm self or others. Onset of symptoms was January 06, 2024. Transition of care: patient was not received from another setting of care. 01:53 Method Of Arrival: Ambulatory jb4 01:53 Acuity: LIZZIE 3 jb4 Historical: - Allergies: 01:54 No Known Allergies; jb4 - PMHx: 01:54 Anxiety; Kidney stones; jb4 - PSHx: 01:54 Cholecystectomy; Adenoid excision; Tonsillectomy; jb4 - Immunization history:: Adult Immunizations up to date. - Infectious Disease History:: Denies. - Social history:: Smoking status: Patient denies any tobacco usage or history of. - Family history:: not pertinent. Screenin:45 [facility] ED Fall Risk Assessment (Adult) History of falling in the last 3 months, rg5 including since admission No falls in past 3 months (0 pts) Confusion or Disorientation No (0 pts) Intoxicated or Sedated No (0 pts) Impaired Gait Yes (1 pt) Mobility Assist Device Used No (0 pt) Altered Elimination No (0 pt) Score/Fall Risk Level 0 - 2 = Low Risk Oriented to surroundings, Maintained a safe environment, Hourly rounding (assess needs \T\ fall precautionary measures) done. Abuse screen: Denies threats or abuse. Nutritional screening: No deficits noted. Tuberculosis screening: No symptoms or risk factors identified. Assessment: 01:45 General: Appears in no apparent distress. Behavior is calm, cooperative, appropriate rg5 for age. 01:45 Pain: Complains of pain in groin Pain currently is 8 out of 10 on a pain scale. Quality rg5 of pain is described as aching. Neuro: Level of Consciousness is awake, alert, obeys commands, Oriented to person, place, time. Cardiovascular: Patient's skin is warm and dry. Rhythm is sinus rhythm. Respiratory: Airway is patent Trachea midline Respiratory effort is even, unlabored, Respiratory pattern is regular, symmetrical. GI: Abdomen is round non-distended, Bowel sounds present X 4 quads. : No signs and/or symptoms were reported regarding the genitourinary system. EENT: No deficits noted. Derm: Skin is intact, Skin is dry, Skin is normal, Skin temperature is warm. Musculoskeletal: Circulation, motion, and sensation intact. Range of motion: intact in all extremities. 03:30 Reassessment: Patient and/or family updated on plan of care and expected duration. Pain rg5 level reassessed. Patient is alert, oriented x 3, equal unlabored respirations, skin warm/dry/pink. 04:15 Reassessment: Patient and/or family updated on plan of care and expected duration. Pain rg5 level reassessed. Patient is alert, oriented x 3, equal unlabored respirations, skin warm/dry/pink. 04:15 Derm: Reports itching, ALL OVER THE BODY. rg5 Vital Signs: 01:53 BP 129 / 94; Pulse 94; Resp 16; Temp 97.5(TE); Pulse Ox 100% on R/A; Weight 95.25 kg jb4 (R); Height 5 ft. 9 in. ; 02:25 BP 140 / 102; Pulse 95; Resp 17; Pulse Ox 100% ; Pain 7/10; rg5 03:58 BP 125 / 72; Pulse 99; Resp 17; Pulse Ox 100% on R/A; Pain 4/10; rg5 04:36 BP 129 / 81; Pulse 100; Resp 17; Pulse Ox 98% on R/A; Pain 7/10; rg5 01:53 Body Mass Index 31.01 (95.25 kg, 175.26 cm) jb4 02:25 Pain Scale: Adult rg5 03:58 Pain Scale: Adult rg5 04:36 Pain Scale: Adult rg5 Mena Coma Score: 01:45 Eye Response: spontaneous(4). Motor Response: obeys commands(6). Verbal Response: rg5 oriented(5). Total: 15. 03:37 Eye Response: spontaneous(4). Motor Response: obeys commands(6). Verbal Response: sp4 oriented(5). Total: 15. ED Course: 01:34 Patient arrived in ED. jj6 01:44 Nima Cornejo MD is Attending Physician. sp4 01:45 Maykel Robles RN is Primary Nurse. rg5 01:45 Patient has correct armband on for positive identification. Bed in low position. Call rg5 light in reach. Side rails up X 1. 01:45 No provider procedures requiring assistance completed. rg5 01:54 Triage completed. jb4 01:54 Arm band placed on right wrist. jb4 02:00 Inserted saline lock: 22 gauge in right hand, using aseptic technique. Blood collected. oe Flushed with 10 mL NS. 03:21 [facility] CONTACTED TO INITIATE TRANSFER, SPOKE WITH AMANDA. ty 03:39 [id number] WITH UROLOGY. ty 03:46 ACCEPTANCE GIVEN, NO NEED TO FAX ED WILL TRIAGE. ty 04:01 Door closed. Noise minimized. Warm blanket given. Verbal reassurance given. rg5 04:02 Provided Education on: needs for admit. rg5 04:17 [facility] STRAIGHT TO [facility], [facility] CALLED ETA 15-20MINUTES. ty 04:45 Patient transferred, IV remains in place. rg5 Administered Medications: 04:32 Discontinued: vancomycin2 grams IVPB at calculated rate once rg5 02:00 Drug: Cefepime IVPB 2 grams IVPB at 200 ml/hr once over 30 mins; (mix in NS 100 mL) rg5 Route: IVPB; Rate: 200 ml/hr; Infused Over: 30 mins; Site: right antecubital; 02:30 Follow up: IV Status: Completed infusion; IV Intake: 100ml rg5 02:00 Drug: morphine IVP or IV 4 mg IVP once over 4 mins Route: IVP; Infused Over: 4 mins; rg5 Site: right antecubital; 02:37 Follow up: Response: No adverse reaction; Pain is decreased rg5 02:00 Drug: Ketorolac IVP 30 mg IVP once Route: IVP; Site: right antecubital; rg5 02:37 Follow up: Response: No adverse reaction; Pain is decreased rg5 02:00 Drug: NS 0.9% IV 1000 ml IV at 1000 ml once; to be given as a bolus over 60 minutes rg5 Route: IV; Rate: 1000 ml; Site: right antecubital; 03:00 Follow up: IV Status: Completed infusion; IV Intake: 1000ml rg5 02:37 Drug: Ondansetron IVP 4 mg IVP once; over 2 minutes Route: IVP; Site: right hand; rg5 03:06 Follow up: Response: No adverse reaction rg5 02:48 Drug: vancoMYCIN IVPB 2 grams IVPB at calculated rate once Route: IVPB; Rate: rg5 calculated rate; Site: right hand; 03:06 Drug: NS 0.9% IV 1000 ml IV at 125 ml/hr continuous Route: IV; Rate: 125 ml/hr; Site: rg5 right hand; 04:46 Follow up: IV Status: Infusion continued upon transfer rg5 04:26 Drug: morphine IVP or IV 4 mg IVP once over 4 mins Route: IVP; Infused Over: 4 mins; rg5 Site: right hand; 04:43 Follow up: Response: No adverse reaction; Pain is decreased rg5 04:26 Drug: metoCLOPramide IVP 10 mg IVP once; over 1 to 2 minutes Route: IVP; Site: right rg5 hand; 04:43 Follow up: Response: No adverse reaction rg5 04:27 Drug: diphenhydrAMINE IVP 50 mg IVP once Route: IVP; Site: right hand; rg5 04:41 Follow up: Response: No adverse reaction rg5 Medication: 01:45 VIS not applicable for this client. rg5 Intake: 02:30 IV: 100ml; Total: 100ml. rg5 03:00 IV: 1000ml; Total: 1100ml. rg5 Outcome: 03:37 ER care complete, transfer ordered by MD. zaidi 04:[address] [facility] to [facility], [facility], rg5 04:44 Condition: stable 04:44 Discharge instructions given to EMS, Instructed on the need for transfer, Demonstrated understanding of instructions, 04:45 Patient left the ED. rg5 Signatures: Luis Velazquez, RN RN jb4 Jorge Araujo Jennifer jj6 Nima Cornejo MD MD sp4 [place] Rommel, RN RN rg5
--- NOTE | 2024-01-06 03:38 | EDPHYS ---
Physician Documentation [facility] Name: Zion Coronado Age: 28 yrs Sex: Male : 1995 Arrival Date: 01/06/2024 Time: 01:32 Bed 14 Private MD: ED Physician Nima Cornejo HPI: 01/05 01:44 This 28 yrs old Black Male presents to ER via Unassigned with complaints of Abscess. sp4 03:37 28-year-old male presents with worsening left scrotal wall pain redness tenderness and sp4 mass. . Historical: - Allergies: 01:54 No Known Allergies; jb4 - PMHx: 01:54 Anxiety; Kidney stones; jb4 - PSHx: 01:54 Cholecystectomy; Adenoid excision; Tonsillectomy; jb4 - Immunization history:: Adult Immunizations up to date. - Infectious Disease History:: Denies. - Social history:: Smoking status: Patient denies any tobacco usage or history of. - Family history:: not pertinent. ROS: 03:37 Constitutional: Negative for fever, chills, and weight loss, positive scrotal pain sp4 scrotal tenderness positive scrotal redness and mass 03:37 All other systems are negative, Exam: 03:37 Constitutional: This is a well developed, well nourished patient who is awake, alert, sp4 and in no acute distress. Head/Face: Normocephalic, atraumatic. Eyes: Pupils equal round and reactive to light, extra-ocular motions intact. Lids and lashes normal. Conjunctiva and sclera are not injected. Cornea within normal limits. Periorbital areas with no swelling, redness, or edema. ENT: Nares patent. No nasal discharge, no septal abnormalities noted. Tympanic membranes are normal and external auditory canals are clear. Oropharynx with no redness, swelling, or masses, exudates, or evidence of obstruction, uvula midline. Mucous membranes moist. Neck: Trachea midline, no thyromegaly or masses palpated, and no cervical lymphadenopathy. Supple, full range of motion without nuchal rigidity, or vertebral point tenderness. Chest/axilla: Normal chest wall appearance and motion. Nontender with no deformity. No lesions are appreciated. Cardiovascular: Regular rate and rhythm with a normal S1 and S2. No gallops, murmurs, or rubs. Normal PMI, no JVD. No pulse deficits. Respiratory: Lungs have equal breath sounds bilaterally, clear to auscultation and percussion. No rales, rhonchi or wheezes noted. No increased work of breathing, no retractions or nasal flaring. Abdomen/GI: Soft, with normal bowel sounds. No distension or tympany. No guarding or rebound. No evidence of tenderness throughout. Back: No spinal tenderness. No costovertebral tenderness. Male : Normal genitalia with no discharge , Positive left lateral scrotal wall redness, tenderness, mass with fluctuance consistent with scrotal wall abscess. Skin: Warm, dry with normal turgor. Normal color with no rashes, no lesions, and no evidence of cellulitis. MS/ Extremity: Pulses equal, no cyanosis. Neurovascular intact. Full, normal range of motion. Neuro: Awake and alert, GCS 15, oriented to person, place, time, and situation. Cranial nerves II-XII grossly intact. Motor strength 5/5 in all extremities. Sensory grossly intact. Psych: Awake, alert, with orientation to person, place and time. Behavior, mood, and affect are within normal limits Vital Signs: 01:53 BP 129 / 94; Pulse 94; Resp 16; Temp 97.5(TE); Pulse Ox 100% on R/A; Weight 95.25 kg jb4 (R); Height 5 ft. 9 in. ; 02:25 BP 140 / 102; Pulse 95; Resp 17; Pulse Ox 100% ; Pain 7/10; rg5 03:58 BP 125 / 72; Pulse 99; Resp 17; Pulse Ox 100% on R/A; Pain 4/10; rg5 04:36 BP 129 / 81; Pulse 100; Resp 17; Pulse Ox 98% on R/A; Pain 7/10; rg5 01:53 Body Mass Index 31.01 (95.25 kg, 175.26 cm) jb4 02:25 Pain Scale: Adult rg5 03:58 Pain Scale: Adult rg5 04:36 Pain Scale: Adult rg5 Barling Coma Score: 01:45 Eye Response: spontaneous(4). Motor Response: obeys commands(6). Verbal Response: rg5 oriented(5). Total: 15. 03:37 Eye Response: spontaneous(4). Motor Response: obeys commands(6). Verbal Response: sp4 oriented(5). Total: 15. MDM: 01:49 Medical Screening Exam initiated sp4 03:21 ED course: US SCROTUM INDICATION: Left scrotal mass. COMPARISON: None TECHNIQUE: Colvin sp4 scale imaging and duplex Doppler ultrasound examination of the scrotum and its contents were performed. FINDINGS: SCROTUM: The visualized left scrotal wall at the area of pain is edematous with increased echogenicity. There is scattered internal color flow. Findings could represent phlegmon in the appropriate clinical setting. RIGHT TESTIS: Size: 3.4 x 2.1 x 3.1 cm. Echotexture: Normal. Blood flow: Normal. Epididymus: Normal in size and echogenicity. The epididymal head measures 1.4 x 1.0 x 0.7 cm. Hydrocele: None. Varicocele: None. Inguinal: The spermatic cord is normal. Masses: None. LEFT TESTIS: Size: 3.7 x 2.8 x 3.3 cm. Echotexture: Normal. Blood flow: Normal. Epididymus: Normal in size and echogenicity. The epididymal head measures 1.3 x 0.9 x 0.7 cm. Hydrocele: None. Varicocele: None. Inguinal: The spermatic cord is normal. Masses: None. OTHER: None. IMPRESSION: 1. Edematous and echogenic left scrotal wall at the area of symptom. There is scattered internal color flow. Findings could represent phlegmon in the appropriate clinical setting. 2. No testicular torsion or epididymoorchitis. Electronically signed by: Katherine Yuan MD 01/05/2024 07:11 AM 01/05/2024 07:11 AM. 03:42 Differential diagnosis: abscess, allergic reaction, cellulitis, insect bite, scrotal sp4 abscess . Data reviewed: vital signs, nurses notes, old medical records, lab test result(s), radiologic studies, ultrasound. Consideration of Admission/Observation Escalation of care including admission/observation considered. ED course: Patient discussed with Urologist at [facility] and accepted as ER to ER transfer . 01/05 02:55 Order name: CBC with Automated Diff; Complete Time: 03:21 EDMS 01/05 03:01 Order name: Comprehensive Metabolic Panel; Complete Time: 03:21 EDMS 01/05 01:49 Order name: NPO; Complete Time: 02:15 sp4 01/05 01:49 Order name: IV Saline Lock; Complete Time: 02:00 sp4 01/05 01:49 Order name: Labs collected and sent; Complete Time: 02:07 sp4 Administered Medications: 04:32 Discontinued: vancomycin2 grams IVPB at calculated rate once rg5 02:00 Drug: Cefepime IVPB 2 grams IVPB at 200 ml/hr once over 30 mins; (mix in NS 100 mL) rg5 Route: IVPB; Rate: 200 ml/hr; Infused Over: 30 mins; Site: right antecubital; 02:30 Follow up: IV Status: Completed infusion; IV Intake: 100ml rg5 02:00 Drug: morphine IVP or IV 4 mg IVP once over 4 mins Route: IVP; Infused Over: 4 mins; rg5 Site: right antecubital; 02:37 Follow up: Response: No adverse reaction; Pain is decreased rg5 02:00 Drug: Ketorolac IVP 30 mg IVP once Route: IVP; Site: right antecubital; rg5 02:37 Follow up: Response: No adverse reaction; Pain is decreased rg5 02:00 Drug: NS 0.9% IV 1000 ml IV at 1000 ml once; to be given as a bolus over 60 minutes rg5 Route: IV; Rate: 1000 ml; Site: right antecubital; 03:00 Follow up: IV Status: Completed infusion; IV Intake: 1000ml rg5 02:37 Drug: Ondansetron IVP 4 mg IVP once; over 2 minutes Route: IVP; Site: right hand; rg5 03:06 Follow up: Response: No adverse reaction rg5 02:48 Drug: vancoMYCIN IVPB 2 grams IVPB at calculated rate once Route: IVPB; Rate: rg5 calculated rate; Site: right hand; 03:06 Drug: NS 0.9% IV 1000 ml IV at 125 ml/hr continuous Route: IV; Rate: 125 ml/hr; Site: rg5 right hand; 04:46 Follow up: IV Status: Infusion continued upon transfer rg5 04:26 Drug: morphine IVP or IV 4 mg IVP once over 4 mins Route: IVP; Infused Over: 4 mins; rg5 Site: right hand; 04:43 Follow up: Response: No adverse reaction; Pain is decreased rg5 04:26 Drug: metoCLOPramide IVP 10 mg IVP once; over 1 to 2 minutes Route: IVP; Site: right rg5 hand; 04:43 Follow up: Response: No adverse reaction rg5 04:27 Drug: diphenhydrAMINE IVP 50 mg IVP once Route: IVP; Site: right hand; rg5 04:41 Follow up: Response: No adverse reaction rg5 Disposition Summary: 01/06/24 03:37 Transfer Ordered Notes: Transfer Location: [facility] sp4 Reason: Higher level of care sp4 Condition: Stable sp4 Problem: new sp4 Symptoms: have improved sp4 Accepting Physician: Urolgy with [facility] (01/06/24 04:45) rg5 Diagnosis - Cutaneous abscess, furuncle and carbuncle of other sites sp4 - Acute Left scrotal wall abscess sp4 - Scrotal Wall Phlegmon sp4 Forms: - Medication Reconciliation Form sp4 - SBAR form sp4 Signatures: Dispatcher [employer] EDMS Luis Velazquez RN RN jb4 Nima Cornejo MD MD sp4 Maykel Robles RN RN rg5 Corrections: (The following items were deleted from the chart) 03:34 03:21 ED course: US SCROTUM INDICATION: Left scrotal mass. COMPARISON: None TECHNIQUE: sp4 Colvin scale imaging and duplex Doppler ultrasound examination of the scrotum and its contents were performed. FINDINGS: SCROTUM: The visualized left scrotal wall at the area of pain is edematous with increased echogenicity. There is scattered internal color flow. Findings could represent phlegmon in the appropriate clinical setting. RIGHT TESTIS: Size: 3.4 x 2.1 x 3.1 cm. Echotexture: Normal. Blood flow: Normal. Epididymus: Normal in size and echogenicity. The epididymal head measures 1.4 x 1.0 x 0.7 cm. Hydrocele: None. Varicocele: None. Inguinal: The spermatic cord is normal. Masses: None. LEFT TESTIS: Size: 3.7 x 2.8 x 3.3 cm. Echotexture: Normal. Blood flow: Normal. Epididymus: Normal in size and echogenicity. The epididymal head measures 1.3 x 0.9 x 0.7 cm. Hydrocele: None. Varicocele: None. Inguinal: The spermatic cord is normal. Masses: None. OTHER: None. IMPRESSION: 1. Edematous and echogenic left scrotal wall at the area of symptom. There is scattered internal color flow. Findings could represent phlegmon in the appropriate clinical setting. 2. No testicular torsion or epididymoorchitis. Electronically signed by: Katherine Yuan MD 01/05/2024 07:11 AM CDT . sp4 03:44 03:37 Urolgy with [facility] sp4 sp4 04:45 03:44 Urolgy with [facility] sp4 rg5
[2024-01-06] MEDS ORDERED: DIPHENHYDRAMINE 50 MG/ML VIAL ONE (04:25)
[2024-01-06] MEDS ORDERED: METOCLOPRAMIDE 10 MG/2mL INJ ONE (04:26)
[2024-01-06 13:37] VITALS: TEMP 97.5
[2024-01-06 13:41] VITALS: BP 129/81; O2SAT 98
== END 2024-01-06 04:45 | disposition short-term general hospital (02) ==
LOC: ER 01:32
DX: N49.2 Inflammatory disorders of scrotum (principal)
CPT/HCPCS: 85025; 36415; 80053; 99285; J2765; J1200; J0692; J2405; J7040; J7030